=== PATIENT | male | born 1930 | race Caucasian/White ===

== ENCOUNTER 2017-07-30 09:15 | Emergency (ER) | payer MEDICARE ==
[2017-07-30] MEDS ORDERED: ISOVUE-370 76%-LOCM 1 ML ONE (11:40)
[2017-07-30 12:28] LABS: #Basophils 0.1 thou/uL (0.0-0.2); #Eosinphils 0.1 thou/uL (0.0-0.7); #Lymphocytes 0.8 thou/uL (1.20-3.40); #Monocytes 1.2 thou/uL (0.11-0.59); #Neutrophils 13.1 thou/uL (1.40-6.50); %Basophils 0.4 % (0.0-1.0); %Eosinophils 0.4 % (0.0-10.0); %Lymphocytes 5.3 % (21.0-51.0); %Monocytes 7.7 % (0.0-10.0); %Neutrophils 86.2 % (42.0-75.0); Hemoglobin 14.7 g/dL (14.0-18.0); Mean Corpuscular HGB CONC 33.1 g/dL (32.0-36.0); Mean Corpuscular Hemoglobin 37.2 pg (27.0-31.0); Mean Platelet Volume 8.5 fL (7.4-10.4); Platelet Count 232 thou/uL (130-400); RBC Distribution Width 14.7 % (11.5-14.5); Red Blood Cell (RBC) Count 3.95 mill/uL (4.70-6.10); White Blood Cell (WBC) Count 15.2 thou/uL (4.8-10.8)
[2017-07-30 12:36] LABS: INR-International Normal Ratio 1.2; PTT 34.4 SEC (22.9-36.1); Prothrombin Time 15.1 SEC (12.0-14.7)
[2017-07-30 12:46] LABS: Hypersemented Neutrophil SLIGHT; MDiff Complete? YES; Macrocytosis MODERATE=16-30 cells (100X) (0-5/hpf); PLT Morphology Comment Appears Adequate; Reflex for Review?? NO; Vacuoles SLIGHT
[2017-07-30 12:50] LABS: ALT (SGPT) 21 U/L (8-55); AST (SGOT) 25 U/L (5-34); Albumin 4.4 g/dL (3.4-4.8); Alkaline Phosphatase 77 U/L (40-150); Anion Gap 14 mmol/L (10-20); BUN (Urea Nitrogen) 39 mg/dL (8.4-25.7); Calc. Creatinine Clearance 0 mL/min (70-130); Carbon Dioxide 23 mmol/L (23-31); Chloride 107 mmol/L (98-107); Estimated GFR-MDRD 37; Globulin 4.5 g/dL (2.4-3.5); Glucose 115 mg/dL (83-110); Magnesium 1.8 mg/dL (1.6-2.6); Potassium 4.5 mmol/L (3.5-5.1); Protein, Total 8.9 g/dL (5.8-8.1); Sodium 139 mmol/L (136-145)
[2017-07-30 12:53] LABS: CKMB 0.7 ng/mL (0-6.6); Troponin I Less than 0.010 ng/mL (< 0.028)
[2017-07-30 13:40] LABS: Bilirubin Negative (Negative); Blood, Urine Negative (Negative); Clarity CLEAR (Clear); Glucose, Urine (Dipstick) Negative (Negative); Leukocyte Negative (Negative); Nitrite Negative (Negative); Protein, Urine (Dipstick) Trace mg/dL (Neg-Trace); Specific Gravity, Urine 1.021 (1.002-1.036); pH, Urine 5.5 (5.0-9.0)
--- NOTE | 2017-07-30 15:03 | CT ---
CT OF THE ABDOMEN AND PELVIS: Date: 07-30-2017 Comparison: Lumbar spine CT, 07-30-17. History: Spine fractures and small retroperitoneal hematoma. Technique: Serial axial CT imaging at 5 mm intervals from lung bases through pubic symphysis with IV contrast. Coronal reformatted imaging obtained. FINDINGS: There is mild increased linear density noted in both lung bases suggesting scar and/or volume loss, s lightly accentuated by patient respiratory motion artifact. There is extensive coronary arterial judi cification noted, not well assessed on this exam. No free intraperitoneal air noted. The liver, gallbladder, and spleen appear grossly unremarkable. Motion artifact limits assessment of the upper abdominal viscera. The adrenal glands and pancreas demonstrate no acute findings. There is a duodenal diverticulum present. Kidneys are grossly unremarkable. Trace nonspecific free fluid is noted in the pelvis posterior to the urinary bladder and just to the right of the distal colon. There is extensive diverticulosis of the descending colon and the sigmoid colon with no evidence for diverticulitis. No evidence for bowel obstruction. Detailed assessment of the bowel is limited second jared to motion artifact and lack of oral contrast. There is scattered atherosclerotic calcification of the abdominal aorta and its branches. There is no lymphadenopathy seen within the abdomen or pelvis. The lumbar spine demonstrates prominent degenerative change most prominent at L3-4 where there is spa ce narrowing, degenerative endplate change and lateral osteophyte formation. There is an acute fracture involving the superior endplate of the T12 vertebral body extending to inv olve the anterior aspect of T12 as well as the right lateral aspect of T12. There is mild loss of saulo tebral body height involving the T12 vertebral body laterally on the right. This T12 fracture is bett er assessed on the 07-30-17 CT examination of the lumbar spine. No definite additional fracture is iden tified. There is mild enlargement of the psoas muscle on the left with minimal adjacent fat stranding suggesting a stable small left paraspinal retroperitoneal hematoma. IMPRESSION: 1. Stable T12 fracture. Stable subtle/small left paraspinal retroperitoneal hematoma. 2. Minimal/trace nonspecific free fluid in the right hemipelvis. 3. No evidence for splenic or hepatic laceration. 4. Multiple additional incidental findings as detailed above. POS: [facility]
== END 2017-07-30 17:44 ==
LOC: ERS 09:15
DX: S22.089A Unspecified fracture of T11-T12 vertebra, initial encounter for closed fracture (principal); S36.892A Contusion of other intra-abdominal organs, initial encounter; N40.0 Benign prostatic hyperplasia without lower urinary tract symptoms; I10 Essential (primary) hypertension; M10.9 Gout, unspecified; W01.0XXA Fall on same level from slipping, tripping and stumbling without subsequent striking against object, initial encounter; Y93.01 Activity, walking, marching and hiking
CPT/HCPCS: 36415; 51701; 70450; 72125; 72131; 74177; 80053; 81003; 82553; 83735; 84484; 85025; 85610; 85730

== ENCOUNTER 2017-09-11 02:50 | Emergency (ER) | payer MEDICARE ==
[2017-09-11 03:23] LABS: #Basophils 0.1 thou/uL (0.0-0.2); #Eosinphils 0.1 thou/uL (0.0-0.7); #Lymphocytes 1.4 thou/uL (1.20-3.40); #Monocytes 1.3 thou/uL (0.11-0.59); #Neutrophils 7.2 thou/uL (1.40-6.50); %Basophils 1.3 % (0.0-1.0); %Eosinophils 1.1 % (0.0-10.0); %Lymphocytes 13.9 % (21.0-51.0); %Monocytes 12.6 % (0.0-10.0); Hemoglobin 13.5 g/dL (14.0-18.0); Mean Corpuscular HGB CONC 33.2 g/dL (32.0-36.0); Platelet Count 457 thou/uL (130-400); RBC Distribution Width 14.2 % (11.5-14.5); Red Blood Cell (RBC) Count 3.64 mill/uL (4.70-6.10); White Blood Cell (WBC) Count 10.1 thou/uL (4.8-10.8)
[2017-09-11 03:42] LABS: ALT (SGPT) 65 U/L (8-55); AST (SGOT) 60 U/L (5-34); Albumin 3.5 g/dL (3.4-4.8); Alkaline Phosphatase 140 U/L (40-150); Anion Gap 13 mmol/L (10-20); BUN (Urea Nitrogen) 22 mg/dL (8.4-25.7); Bilirubin, Total 0.6 mg/dL (0.2-1.2); Calc. Creatinine Clearance 0 mL/min (70-130); Calcium 8.9 mg/dL (7.8-10.44); Carbon Dioxide 23 mmol/L (23-31); Chloride 106 mmol/L (98-107); Estimated GFR-MDRD 56; Glucose 104 mg/dL (83-110); Potassium 3.9 mmol/L (3.5-5.1); Protein, Total 7.5 g/dL (5.8-8.1); Sodium 138 mmol/L (136-145)
[2017-09-11 03:50] LABS: CKMB 0.7 ng/mL (0-6.6); Troponin I Less than 0.010 ng/mL (< 0.028)
[2017-09-11 04:40] LABS: Bilirubin Negative (Negative); Blood, Urine Negative (Negative); Clarity CLEAR (Clear); Glucose, Urine (Dipstick) Negative (Negative); Leukocyte Negative (Negative); Nitrite Negative (Negative); Protein, Urine (Dipstick) Negative (Neg-Trace); Specific Gravity, Urine 1.016 (1.002-1.036)
--- NOTE | 2017-09-11 08:01 | RAD ---
PORTABLE CHEST ONE VIEW: Date: 09-11-17 Time: 3:04 a.m. History: Altered mental status. FINDINGS: Comparison made with exam of 08-01-17. The heart size is enlarged. There is continued elevation of the right hemidiaphragm. No lobar consoli dation, pneumothoraces, pablo pleural edema or pleural effusions are seen. There are degenerative manny nges of the spine and shoulder joints. IMPRESSION: No acute process. POS: [facility]
== END 2017-09-11 05:50 ==
LOC: ERS 02:50
DX: F03.90 Unspecified dementia, unspecified severity, without behavioral disturbance, psychotic disturbance, mood disturbance, and anxiety (principal); E78.5 Hyperlipidemia, unspecified; I10 Essential (primary) hypertension
CPT/HCPCS: 51701; 71045; 80053; 81003; 82553; 83605; 84484; 85025; 93005

== ENCOUNTER 2017-11-28 03:53 | Emergency (ER) | payer MEDICARE ==
[2017-11-28] MEDS ORDERED: Lidocaine 1% w/Epinephrine 1:100K 20 ML VIAL ONE (04:01)
[2017-11-28 04:22] LABS: #Basophils 0.2 thou/uL (0.0-0.2); #Eosinphils 0.3 thou/uL (0.0-0.7); #Lymphocytes 1.4 thou/uL (1.20-3.40); #Monocytes 1.1 thou/uL (0.11-0.59); #Neutrophils 10.4 thou/uL (1.40-6.50); %Basophils 1.4 % (0.0-1.0); %Eosinophils 2.3 % (0.0-10.0); %Lymphocytes 10.3 % (21.0-51.0); %Monocytes 8.2 % (0.0-10.0); %Neutrophils 77.8 % (42.0-75.0); Mean Corpuscular HGB CONC 32.1 g/dL (32.0-36.0); Mean Corpuscular Hemoglobin 32.9 pg (27.0-31.0); Mean Platelet Volume 7.7 fL (7.4-10.4); Platelet Count 587 thou/uL (130-400); Red Blood Cell (RBC) Count 4.26 mill/uL (4.70-6.10); White Blood Cell (WBC) Count 13.4 thou/uL (4.8-10.8)
[2017-11-28 04:32] LABS: Anion Gap 13 mmol/L (10-20); BUN (Urea Nitrogen) 16 mg/dL (8.4-25.7); Calc. Creatinine Clearance 0 mL/min (70-130); Carbon Dioxide 27 mmol/L (23-31); Chloride 106 mmol/L (98-107); Estimated GFR-MDRD 68; Glucose 98 mg/dL (83-110); Potassium 3.1 mmol/L (3.5-5.1); Sodium 143 mmol/L (136-145)
[2017-11-28] MEDS ORDERED: Oxymetazoline HCl 0.05% ( 15 ML ) ONE (06:37)
--- NOTE | 2017-11-28 07:51 | CT ---
CT HEAD NONCONTRAST: HISTORY: Subdural hematoma. Followup. COMPARISON: Earlier exam on the same date. FINDINGS: The very small hyperdense extraaxial fluid collection with biconvex margins along the posterior aspec t of the left temporal inner calvarium is again demonstrated. It has increased very slightly in size , now measuring up to 0.5 cm in depth. There is minimal underlying mass effect. No new areas of hem orrhage. Ventricles are unremarkable. IMPRESSION: While the left frontotemporal subdural hematoma has increased slightly in size, it remains very small , measuring up to 0.5 cm in depth. No new abnormalities. POS: [facility]
--- NOTE | 2017-11-28 11:14 | CT ---
PRELIMINARY REPORT/[facility]/EMERGENTY AFTER-HOURS PROCEDURE Addendum created by Rene Sims MD on 11/28/2017 5:16 AM Central Time ([place] & [place])THIS REPORT CONTAI NS FINDINGS THAT MAY BE CRITICAL TO PATIENT CARE. The findingswere verbally communicated via telephon e conference with TENZIN VILA at 5:06 AM CDT on 11/28/2017. The findings were acknowledged and under stood. Initial Report created on 11/28/2017 5:02 AM Central Time ([place] & [place]) CT Head Without Intravenous Contrast CLINICAL HISTORY: 87 years old, male; Injury or trauma; Fall; Initial encounter; Blunt trauma (contusions or hematomas) ; Consciousness not specified; Patient HX: Additional history obtained from ems, m87 presents to ed S /P fall C/O abrasions and tailbone pain. [facility]. About 30 minutes a go, nurses were rounding and pt was on floor yelling for help. Nurses reported to ems that the pt's c omforter was wrapped around ankles which possibly caused the fall. Pt has no complaints right now. TECHNIQUE: Axial computed tomography images of the head/brain without intravenous contrast. COMPARISON: No relevant prior studies available. FINDINGS: Brain: Atrophy and mild white matter hypodensities compatible with chronic microvascular ischemic manny nge. Extra-axial hyperdensity measuring up to 3 mm in thickness along the left posterior temporal and frontoparietal region. Ventricles: Unremarkable. Bones/joints: Unremarkable. No acute fracture. Soft tissues: Small calcific density in the subcutaneous soft tissues at the bridge of the nose. Sinuses: Unremarkable. Mastoid air cells: Unremarkable. No mastoid effusion. IMPRESSION: 1. Thin acute subdural hematoma along the left frontoparietal and posterior temporal region. 2. Small calcific density in the subcutaneous soft tissues at the bridge of the nose. Thank you for allowing us to participate in the care of your patient. Dictated and Authenticated by: Rene Sims MD 11/28/2017 5:02 AM Central Time ([place] & [place]) FINAL REPORT CT HEAD NONCONTRAST: DATE: 11/28/17. TIME: Performed on an emergency basis at 0413 hours. HISTORY: Fall. Head injury. FINDINGS: The findings agree with the preliminary report by Dr. Sims from [facility]. The very small l eft frontotemporal subdural hematoma is confirmed. Minimal mass effect. POS: [facility]
--- NOTE | 2017-11-28 16:13 | CON ---
DATE OF CONSULTATION: 11/28/2017 This is a 30 minute initial patient evaluation in which greater than 50% of the exam was spent on cou nseling and coordinating the patient's care. Remainder of the exam was spent in review of patient's medical records and appropriate imaging studies. CHIEF COMPLAINT: Status post fall with small left subdural hematoma. HISTORY OF PRESENT ILLNESS: Mr. Phillips is a pleasant 87-year-old male who presents to [facility] from his residential facility after sustaining an unwitnessed fall. Apparently, the patient has a significant component of dementia and Alzheimer's disease. He was found to have a lace ration on the nose and blood inside his mouth. According to the patient's brother and sister who acc ompany him, he is somewhat more confused at this time. The patient does not normally take blood thin ners and does not typically use a walker at the facility. He does not typically fall. On review of patient's head CT done today at 4:13 a.m., shows a small left frontal subdural hematoma. Neurosurger y was asked to consult regarding this. PHYSICAL EXAMINATION: The patient is awake and alert. He is interactive, but it is difficult to und erstand. His speech is somewhat garbled, but he is able to answer yes or no questions appropriately. His GCS currently is 14. He is able to follow commands in all 4 extremities with significant encou ragement. With the help of the patient's family, again, he is able to follow commands equally in all 4 extremities and appears to have good strength in the bilateral upper and bilateral lower extremiti es. He does have a laceration on the nose that has been repaired by the emergency room and also has blood in his mouth. He is able to stick out his tongue and there is no deviation. Pupils are equal, round, and reactive bilaterally. He does not complain of neck pain and does not have any grimace or worsen tenderness to palpation about palpation of the midline cervical spine and in the bilateral pa raspinal musculature of the cervical spine. IMPRESSION: Status post unwitnessed fall with very small left subdural hematoma. PLAN: Review of the patient's repeat head CT from 7:30 a.m. shows stable left subdural hematoma. Fr om our standards, the patient is able to discharge home to his nursing facility and we will arrange f or a week follow up with noncontrast head CT. We would like him to remain off all blood thinners unt il seen by Neurosurgery. It should be noted that the patient was evaluated and examined at 7:00 a.m. today; however, he was br ought back to the emergency room from his facility. They have requested admission and the trauma col [facility] will admit him. He should have q.2 hour neuro checks and they will admit him to the IM. H e may eat and activity as tolerated. His head of bed should remain elevated at 30 degrees at all carol es. Please call with any questions or changes in patient's neurologic status. Otherwise, he is stab le for discharge at any time. He will not require neurosurgical intervention as the left subdural he matoma is very minimal and has remained stable over the past several hours. Rufino Kramer PA-C is dictating fro Dr. Vargas Lord.
== END 2017-11-28 09:45 | disposition home or self-care (01) ==
LOC: ERS 03:53
DX: S06.5X9A Traumatic subdural hemorrhage with loss of consciousness of unspecified duration, initial encounter (principal); S01.511A Laceration without foreign body of lip, initial encounter; S01.21XA Laceration without foreign body of nose, initial encounter; F03.90 Unspecified dementia, unspecified severity, without behavioral disturbance, psychotic disturbance, mood disturbance, and anxiety; E78.5 Hyperlipidemia, unspecified; I10 Essential (primary) hypertension; M10.9 Gout, unspecified; Z79.899 Other long term (current) drug therapy; W06.XXXA Fall from bed, initial encounter
CPT/HCPCS: 36415; 70450; 80048; 85025; J2001

== ENCOUNTER 2017-11-28 12:20 | Inpatient (IN) | payer MEDICARE ==
--- NOTE | 2017-11-28 13:39 | RAD ---
CHEST ONE VIEW: Comparison: 09-11-17 History: Fall. Small subdural bleed. FINDINGS: Atherosclerosis of the aorta. Normal cardiac silhouette. The pulmonary vessels are within normal limi ts. Costophrenic angles are clear. Lung volumes are diminished. No consolidation or mass. No pneumoth orax. There are degenerative changes in both shoulders. IMPRESSION: 1. Atherosclerosis. 2. Diminished lung volumes. No acute cardiopulmonary process. POS: [facility]
--- NOTE | 2017-11-28 13:49 | CT ---
CT HEAD NONCONTRAST: History: Fall, subdural hematoma. Follow up. Comparison: 11-28-17 FINDINGS: The small left frontotemporal subdural hematoma is stable compared to the previous exam on the same d ate. There is minimal underlying mass effect. Diffuse cortical atrophy and chronic ischemic small ves ariel disease are again demonstrated. Gas density at the posterior pharynx may be related to secretions . Visualized paranasal sinuses are well aerated. IMPRESSION: Stable CT appearance of the small left frontotemporal subdural hematoma. POS: [facility]
--- NOTE | 2017-11-28 14:06 | PRG ---
DATE OF SERVICE: 11/28/2017 I reviewed the notes of my colleague on Allan Phillips. I agree with Ms. Nia PA-C's assessment. He is an 87-year-old man who fell at longterm. He was brought in for a very small left-sided f rontotemporal acute subdural hematoma. This is stable on repeat head CT. I would recommend discharg e back to his group home facility given the stability and the patient is clinically at his basel ine with intermittent following of commands. We will follow up in my clinic in 1 month.
[2017-11-28 14:26] LABS: #Basophils 0.2 thou/uL (0.0-0.2); #Eosinphils 0.2 thou/uL (0.0-0.7); #Monocytes 1.3 thou/uL (0.11-0.59); #Neutrophils 13.1 thou/uL (1.40-6.50); %Basophils 1.3 % (0.0-1.0); %Lymphocytes 6.2 % (21.0-51.0); %Monocytes 8.2 % (0.0-10.0); %Neutrophils 83.3 % (42.0-75.0); Hemoglobin 13.2 g/dL (14.0-18.0); Mean Corpuscular HGB CONC 32.3 g/dL (32.0-36.0); Mean Corpuscular Hemoglobin 32.9 pg (27.0-31.0); Mean Platelet Volume 7.8 fL (7.4-10.4); Platelet Count 608 thou/uL (130-400); RBC Distribution Width 13.7 % (11.5-14.5); Red Blood Cell (RBC) Count 4.02 mill/uL (4.70-6.10); White Blood Cell (WBC) Count 15.7 thou/uL (4.8-10.8)
[2017-11-28 14:32] LABS: PTT 37.3 SEC (22.9-36.1)
[2017-11-28 14:35] LABS: INR-International Normal Ratio 1.3; Prothrombin Time 16.1 SEC (12.0-14.7)
[2017-11-28] MEDS ORDERED: Ibuprofen 200 MG TAB PO PRN (14:44)
[2017-11-28] MEDS ORDERED: Acetaminophen 500 MG TAB PO PRN (14:44)
[2017-11-28 14:47] LABS: ALT (SGPT) 11 U/L (8-55); AST (SGOT) 27 U/L (5-34); Albumin 3.8 g/dL (3.4-4.8); Alkaline Phosphatase 93 U/L (40-150); Anion Gap 13 mmol/L (10-20); BUN (Urea Nitrogen) 17 mg/dL (8.4-25.7); Bilirubin, Total 1.1 mg/dL (0.2-1.2); CK (CPK) 92 U/L (30-200); Calc. Creatinine Clearance 0 mL/min (70-130); Calcium 8.8 mg/dL (7.8-10.44); Carbon Dioxide 26 mmol/L (23-31); Chloride 105 mmol/L (98-107); Estimated GFR-MDRD 73; Globulin 3.6 g/dL (2.4-3.5); Glucose 105 mg/dL (83-110); Potassium 3.2 mmol/L (3.5-5.1); Protein, Total 7.4 g/dL (5.8-8.1); Sodium 141 mmol/L (136-145)
[2017-11-28] MEDS ORDERED: Ondansetron ODT 4 MG TAB PO PRN (14:47)
[2017-11-28] MEDS ORDERED: Dextrose 50% Abboject 50 ML SYRINGE SLOW IVP PRN (14:47)
[2017-11-28] MEDS ORDERED: Dextrose 5% in Water 1,000 ML IV PRN (14:47)
[2017-11-28] MEDS ORDERED: Ondansetron HCl/PF 4 MG/2 ML Vial IVP PRN (14:47)
[2017-11-28 14:50] LABS: CKMB 1.9 ng/mL (0-6.6); Troponin I 0.022 ng/mL (< 0.028)
[2017-11-28] MEDS ORDERED: Oxymetazoline HCl 0.05% ( 15 ML ) ONE (15:52)
[2017-11-28 18:16] VITALS: BMI 25.8
[2017-11-28] MEDS: hydrALAZINE 20 MG/ML VIAL SLOW IVP PRN (20:46)
[2017-11-28] MEDS: Famotidine 20 MG TAB PO SCH (20:58)
[2017-11-29] MEDS: hydrALAZINE 20 MG/ML VIAL SLOW IVP PRN (03:15)
[2017-11-29 04:35] LABS: #Basophils 0.1 thou/uL (0.0-0.2); #Eosinphils 0.1 thou/uL (0.0-0.7); #Lymphocytes 1.2 thou/uL (1.20-3.40); #Monocytes 1.8 thou/uL (0.11-0.59); #Neutrophils 14.4 thou/uL (1.40-6.50); %Basophils 0.8 % (0.0-1.0); %Eosinophils 0.7 % (0.0-10.0); %Lymphocytes 6.7 % (21.0-51.0); %Monocytes 10.4 % (0.0-10.0); %Neutrophils 81.4 % (42.0-75.0); Hemoglobin 13.2 g/dL (14.0-18.0); Mean Corpuscular HGB CONC 31.8 g/dL (32.0-36.0); Mean Corpuscular Hemoglobin 31.9 pg (27.0-31.0); Mean Platelet Volume 7.8 fL (7.4-10.4); Platelet Count 671 thou/uL (130-400); RBC Distribution Width 13.8 % (11.5-14.5); Red Blood Cell (RBC) Count 4.13 mill/uL (4.70-6.10); White Blood Cell (WBC) Count 17.7 thou/uL (4.8-10.8)
[2017-11-29 04:44] LABS: Anion Gap 15 mmol/L (10-20); BUN (Urea Nitrogen) 19 mg/dL (8.4-25.7); Calc. Creatinine Clearance 70 mL/min (70-130); Calcium 8.8 mg/dL (7.8-10.44); Carbon Dioxide 21 mmol/L (23-31); Chloride 106 mmol/L (98-107); Estimated GFR-MDRD 81; Glucose 115 mg/dL (83-110); Magnesium 1.5 mg/dL (1.6-2.6); Phosphorus 2.5 mg/dL (2.3-4.7); Sodium 139 mmol/L (136-145)
[2017-11-29 05:30] LABS: Bilirubin Negative (Negative); Blood, Urine Negative (Negative); Clarity CLEAR (Clear); Glucose, Urine (Dipstick) Negative (Negative); Leukocyte Negative (Negative); Nitrite Negative (Negative); Protein, Urine (Dipstick) 100 mg/dL (Neg-Trace); Specific Gravity, Urine 1.015 (1.002-1.036)
[2017-11-29 05:32] LABS: Bacteria/HPF None Seen HPF (None Seen); Hyaline Casts/LPF 0-3 HYALINE CAST LPF (0-3 Hyaline); Pathc Cast-AUWi Flag 0.14 (0-2.49); RBC/HPF 0-3 HPF (0-3); Squamous Epithelial 0-3 HPF (0-3); WBC/HPF 0-3 HPF (0-3)
--- NOTE | 2017-11-29 08:03 | HP-2 ---
DATE OF SERVICE: 11/28/2017 TIME: 1500 ATTENDING: Clif Lisa D.O. HISTORY OF PRESENT ILLNESS: Patient is an 87-year-old male who resides at [facility] that reportedly fell this morning around 3:00 a.m. Per patient's family reports the nursing staff there reported he got tingled up and some blankets and fell from ground level. He was seen in the ED at that time where they found a small left frontotemporal subdural hematoma. Neurosurgery was called and recommended a repeat CT scan several hours later to determine stability of hematoma. Repeat CT scan 2-1/2 hours later showed slightly increase in size, measuring up to 0.5 cm in depth. No new abnormalities. Patient was discharged back to the detention with stable vital signs and a GCS 14 at baseline. When he arrived there, detention staff reports that he was talking more than normal and has some hallucinations, seeing things on wall. Family was not there at that time, but sister reports that over the past 3 days she has noticed this change. Despite the fact that this is not a new change per the family, he is A&O x0 at the time of my exam, which is a new finding from yesterday since the fall per family members. Of note, with his fall, he also had some small lacerations to his nose and his lip that were repaired with suture. PAST MEDICAL HISTORY: 1. Hypertension. 2. Hyperlipidemia. 3. BPH. 4. Gout. 5. Alzheimer disease. 6. Family reports a blood disorder in which he sees cancer doctor, unsure of diagnosis. PAST SURGICAL HISTORY: 1. Left fifth toe surgery. 2. Appendectomy. SOCIAL HISTORY: Patient resides at [facility] over the last 2 months. No current tobacco, alcohol or drug use. MEDICATIONS: 1. Amiloride/hydrochlorothiazide 5 mg/50 mg 1 tab p.o. q.a.m. 2. Hydroxyurea 500 mg b.i.d. 3. Metoprolol tartrate p.o. 25 mg b.i.d. 4. Protonix 40 mg p.o. q.a.m. 5. Simvastatin 40 mg at bedtime. 6. Terazosin 2 mg 2 caps for a total of 4 mg at bedtime. 7. Uloric 40 mg 1 tab p.o. daily. ALLERGIES: No reported allergies. REVIEW OF SYSTEMS: Hard to obtain because of patient's mental orientation, he denies any pain and family members report no recent cough, fever or illness. PHYSICAL EXAMINATION: VITAL SIGNS: Most recent vital signs per the ER record are blood pressure 159/ 79, pulse 77, respiratory rate 16, and temperature 98.7. Oxygen saturation 96% on room air. GENERAL: The patient is alert and oriented x0. 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 He is in no acute distress. HEENT: Patient does have a laceration of the nose and lip, status post repair with suture. The patient does have a current nosebleed with some packing in place at this time. EOMI. PERRLA. CARDIOVASCULAR: Regular rate and rhythm. No murmurs noted. LUNGS: Clear to auscultation bilaterally. ABDOMEN: Soft, nontender, nondistended. MUSCULOSKELETAL: Movement noted in all extremities. NEUROVASCULAR: Muscle strength in lower extremities and upper extremities bilaterally is 4/5 and bilateral lower extremities 5/5. Normal sensation throughout. GCS14 IMAGES: Brain CT done at 0300, 0500 and again 1315, on the left frontotemporal subdural hematoma that has had mild increase in size over the course of the first 2 CTs and hence become stable since then. CBC reports white blood cell count 15.7, hemoglobin 13.2, hematocrit 41.0, MCV 102, platelet count of 608. Coagulation: PT 16.1, INR 1.3, PTT 37.3. Chemistry panel: Sodium 141, potassium 3.2, chloride 105, carbon dioxide 26, BUN 17, creatinine 0.98, glucose 105, calcium 8.8, total bilirubin 1.1, AST 27, ALT 11, alkaline phosphatase 93. CK of 92, total protein 7.4, albumin 3.8. IMPRESSION: 1. Status post ground level fall. 2. Small left frontotemporal subdural hematoma, stable. 3. Hypertension. 4. Hyperlipidemia. 5. Benign prostatic hypertrophy. PLAN: 1. Admit to [facility] for observation and serial neuro checks. Neurosurgery has been made aware that the patient is here. 2. Epistaxis. The patient is unable to leave the pressure dressing in place, we will plan to place Rhino rocket. 3. With acute change in orientation and elevated white count will evaluate for possible infection as cause for acute delirium. The patient's sister reports mentation change lead the last 3 days prior to fall. It is perfectly reasonable though that his orientation status could be due to his subdural hematoma and therefore does need to be monitored with serial checks. We will rule out infection. 4. We will restart patient on home medications as I am aware from medication list provided, the patient is not on any blood thinners at this time. This patient was checked out to attending, Dr. Lisa, who will see and examine the patient as well and agrees with the plan. JESSICAD
[2017-11-29] MEDS ORDERED: Febuxostat [Uloric] 40 MG PO SCH (09:00)
[2017-11-29] MEDS ORDERED: Magnesium Sulfate 3 GM in Sodium Chloride 0.9% 100 ML IVPB SCH (12:30)
[2017-11-29] MEDS ORDERED: Potassium Phosphate 30 MMOL, Magnesium Sulfate 3 GM in Sodium Chloride 0.9% 250 ML 250 ML IVPB SCH (12:30)
--- NOTE | 2017-11-29 12:44 | PRG ---
DATE OF SERVICE: 11/29/2017 SUBJECTIVE: Mr. Phillips is an 87-year-old man with history of senile dementia of Alzheimer's type, st atus post ground level fall sustaining mild traumatic brain injury with small left convexity subdural hematoma which has remained stable on repeat CT scan. The patient is somewhat somnolent this mornin g, awakens however, to deep voice. He moves all extremities and follows commands. Lincoln coma scal e therefore is E3 M6 V3. OBJECTIVE: VITAL SIGNS: Currently includes blood pressure 146/72, pulse is 107, respiratory rate is 25. Maximu m temperature in the last 24 hours is 98.8 degrees Fahrenheit. Oxygen saturation is 96% on room air. HEENT: Reveals pupils equal, round, reactive to light and accommodation. HEART: Reveals regular rate with sinus tachycardia. No murmurs or gallops auscultated. CHEST: Clear to auscultation bilaterally. Breathing is regular and unlabored. ABDOMEN: Soft, nontender, nondistended. Bowel sounds in all 4 quadrants appear normoactive. EXTREMITIES: Reveals 2+ radial and pedal pulses bilaterally. No ankle edema is present. NEUROLOGIC: Reveals no focal deficits. LABORATORY DATA: Today includes a CBC with 17,700 white blood cells, hemoglobin and hematocrit stabl e at 13.2 and 41.5 respectively. Platelet count is 671,000. Metabolic profile: Sodium 139, potassi um is 3.0, chloride is 106, bicarbonate is 21, BUN 19, creatinine 0.89, glucose is 115, magnesium 1.5 , phosphorus is 2.5. IMPRESSION: 1. Post-admission day #1 status post ground level fall. 2. 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 3. Acute hypokalemia. 4. Acute hypomagnesemia. 5. Acute hypophosphatemia. PLAN: 1. Correct abnormal electrolytes. 2. Initiate physical and occupational therapy. 3. We will ask palliative medicine to see the patient and consider hospice care upon return to [facility] facility. The above findings and plan discussed with the patient's family at bedside. They all indicated under stand of information given and wishes to visit with the palliative care.
[2017-11-29] MEDS: Lactated Ringer's 1,000 ML IV SCH (14:36)
[2017-11-29] MEDS: Famotidine 20 MG TAB PO SCH ×2 (14:52→21:18)
[2017-11-29] MEDS: Atorvastatin Calcium 20 MG TAB PO SCH (14:52)
[2017-11-29] MEDS: Hydroxyurea 500 MG CAP PO SCH (14:52)
[2017-11-29] MEDS: Lisinopril 5 MG TAB PO SCH (14:53)
--- NOTE | 2017-11-29 20:43 | PRG ---
DATE OF SERVICE: 11/29/2017 This is a 30-minute initial hospital visit note in which 30 minutes were spent in reviewing the imagi ng record, evaluation and examination of the patient and formulation of a plan. Greater than 50% of the time was spent in counseling on Allan Phillips. CHIEF COMPLAINT: Small left-sided convexity acute subdural hematoma status post fall, history of dem entia. SUBJECTIVE: Mr. Phillips is an 87-year-old man. He has longstanding dementia and has been in a [facility] home. He fell and struck his face and developed epistaxis and a small left-sided acute subdural he matoma with no worrisome midline shift and mass effect was identified. This has been stable on [address] scans. He has a nasal balloon in place to control any continuous nasal bleed. I am speaking with his family currently. OBJECTIVE: On exam, the patient spontaneously moves his extremities, but does not arouse to voice or to gentle touch on his shoulder. IMPRESSION AND PLAN: The patient's family know that obviously the bleed is not something that would warrant any surgical intervention. Unfortunately, at his age, any type of head injury can exacerbate or accelerate the dementia process. I think his prognosis is poor overall and there is no role for neurosurgical intervention on this patient. DIAGNOSES: 1. Left acute subdural hematoma, status post fall. 2. Dementia.
[2017-11-29] MEDS: Terazosin HCl 1 MG CAP PO SCH (21:18)
[2017-11-30] MEDS: hydrALAZINE 20 MG/ML VIAL SLOW IVP PRN ×2 (03:12→12:21)
[2017-11-30] MEDS: Lisinopril 5 MG TAB PO SCH (08:14)
[2017-11-30] MEDS: Atorvastatin Calcium 20 MG TAB PO SCH (08:14)
[2017-11-30] MEDS: Hydroxyurea 500 MG CAP PO SCH (08:14)
[2017-11-30] MEDS: Famotidine 20 MG TAB PO SCH ×2 (08:14→22:17)
[2017-11-30] MEDS: Lactated Ringer's 1,000 ML IV SCH (08:35)
--- NOTE | 2017-11-30 13:10 | PRG ---
DATE OF SERVICE: 11/30/2017 ATTENDING PHYSICIAN: Dr. Clif Lisa. SUBJECTIVE: Mr. Phillips is an 87-year-old man with a history of dementia, status post ground level fa ll sustaining a mild traumatic brain injury with a subdural hematoma. He has been seen and evaluated by Neurosurgery who does not recommend surgical intervention. This has been discussed with his fami ly and family is in agreement. He was seen this morning. He is more awake and responsive than he wa s on rounds yesterday morning. He is conversive, but confused. OBJECTIVE: VITAL SIGNS: Temperature 98.3, pulse 106, respirations 33, and blood pressure 137/69. GENERAL: Elderly male lying in bed in no acute distress. HEENT: Contusions and abrasions to the mid face and nose. Dry blood around the nares. No active bl eeding. CARDIOVASCULAR: Sinus tachycardia. Heart sounds normal. PULMONARY: Bilateral breath sounds equal and clear. No respiratory distress. ABDOMEN: Soft, nontender, nondistended. Normal bowel sounds. EXTREMITIES: Cap refill brisk. All extremities 2+ pulses in all extremities. NEUROLOGIC: GCS is 14. E4, V4, M6. ASSESSMENT: 1. Status post ground level fall. 2. Acute traumatic brain injury with subdural hematoma, does not require surgical intervention. 3. Mental status somewhat improved yesterday. PLAN: 1. Patient is seen by palliative care who continues to follow for placement and goals of therapy. A fter conversation with palliative care yesterday, hospice care in a facility is being considered by leesa finley. A decision has not been made at this time. The patient was made DNR yesterday due to family' s wishes after discussion with palliative care. 2. Continue physical and occupational therapy. 3. Continue to monitor and replace electrolytes as indicated. Patient was reviewed with Dr. Lisa who agrees with plan.
[2017-11-30] MEDS: Terazosin HCl 1 MG CAP PO SCH (22:18)
[2017-12-01] MEDS: Lactated Ringer's 1,000 ML IV SCH (04:48)
[2017-12-01 05:20] LABS: Magnesium 1.7 mg/dL (1.6-2.6); Phosphorus 3.3 mg/dL (2.3-4.7)
[2017-12-01] MEDS: Hydroxyurea 500 MG CAP PO SCH (08:35)
[2017-12-01] MEDS: Famotidine 20 MG TAB PO SCH ×2 (08:36→20:26)
[2017-12-01] MEDS: Atorvastatin Calcium 20 MG TAB PO SCH (08:36)
[2017-12-01] MEDS: Lisinopril 5 MG TAB PO SCH (08:36)
[2017-12-01] MEDS ORDERED: Furosemide 20 MG/2 ML VIAL SLOW IVP SCH (11:30)
--- NOTE | 2017-12-01 19:02 | PRG ---
DATE OF SERVICE: 12/01/2017 ATTENDING PHYSICIAN: Clif Lisa DO. SUBJECTIVE: Mr. Phillips is an 87-year-old man with a history of dementia, status post ground level fa ll, sustaining a mild traumatic brain injury with subdural hematoma. He was evaluated by Neurosurger y who subsequently did not recommend any surgical intervention. Family was in agreement with that. Palliative care was consulted 2 days ago for goals of care. SUBJECTIVE: The patient was made DNR at that time. The family is considering long-term placement pa tient. He has been stable overnight in [facility]. OBJECTIVE: VITAL SIGNS: Temperature 98.4, pulse 92, respirations 24, O2 sat 95% on 2 liters nasal cannula, bloo d pressure 134/74. GENERAL: Elderly male lying in bed, in no acute distress, pleasant and converses but confused. HEENT: Contusion abrasions to the mid face and nose. No active bleeding. CARDIOVASCULAR: Sinus tachycardia. Heart sounds normal. PULMONARY: Bilateral breath sounds equal and clear. No respiratory distress. ABDOMEN: Soft, nontender, nondistended. Normal bowel sounds. EXTREMITIES: Cap refill brisk in all extremities, 2+ pulses in all extremities. NEUROLOGIC: GCS 14, E4 V4 M6. ASSESSMENT: 1. Status post ground level fall. 2. Acute traumatic brain injury with subdural hematoma, does not require surgical intervention. 3. Mental status is stable. The patient remains confused. GCS 14. 4. Patient with physical exam findings of fluid volume overload. PLAN: 1. Give 20 mg of Lasix this a.m. 2. Recheck labs in a.m. and continue to follow laboratory studies. 3. Placement pending. Family considering palliative care options. 4. Continue physical and occupational therapy. 4. Continue to monitor and replace electrolytes as indicated. The patient was reviewed with Dr. Lisa, who agrees with plan.
[2017-12-01] MEDS: Terazosin HCl 1 MG CAP PO SCH (20:27)
[2017-12-02 05:01] LABS: Anion Gap 11 mmol/L (10-20); BUN (Urea Nitrogen) 21 mg/dL (8.4-25.7); Calc. Creatinine Clearance 59 mL/min (70-130); Calcium 8.2 mg/dL (7.8-10.44); Carbon Dioxide 29 mmol/L (23-31); Chloride 104 mmol/L (98-107); Estimated GFR-MDRD 67; Glucose 98 mg/dL (83-110); Magnesium 1.8 mg/dL (1.6-2.6); Phosphorus 4.3 mg/dL (2.3-4.7); Potassium 3.2 mmol/L (3.5-5.1); Sodium 141 mmol/L (136-145)
[2017-12-02] MEDS: Hydroxyurea 500 MG CAP PO SCH (09:22)
[2017-12-02] MEDS: Atorvastatin Calcium 20 MG TAB PO SCH (09:22)
[2017-12-02] MEDS: Famotidine 20 MG TAB PO SCH ×2 (09:22→21:31)
[2017-12-02] MEDS: Lisinopril 5 MG TAB PO SCH (09:22)
[2017-12-02] MEDS ORDERED: Magnesium 2 GM/NS 0.9% 100 ML 2 GM in Premix Bag 1 BAG IVPB SCH (12:15)
--- NOTE | 2017-12-02 18:49 | PRG ---
DATE OF SERVICE: 12/02/2017. SUBJECTIVE: Mr. Phillips is an 87-year-old man, who was admitted following a ground level fall where h e sustained acute traumatic subdural hematoma. Hospitalization has been complicated by acute metabol ic encephalopathy, which is now improving. Today, patient is more awake and alert. He is less confu sed today. Tolerating oral intake. He is having adequate urinary output. OBJECTIVE: VITAL SIGNS: Today includes blood pressure 100/45, pulse 85, respiratory rate is 23, temperature 98. 4 degrees Fahrenheit, and oxygen saturation 95% on 2 liters by nasal cannula oxygen. HEENT: Reveals normocephalic and atraumatic. Pupils are equal, round, reactive to light and accommo dation. Extraocular muscles are intact bilaterally. He has no sclerae icterus present. HEART: Reveals regular rate and rhythm, no murmurs or gallops auscultated. CHEST: Lungs clear to auscultation bilaterally. Breathing regular and unlabored. ABDOMEN: Soft, nontender, nondistended. EXTREMITIES: Reveals 2+ radial and pedal pulses bilaterally. No ankle edema is present. NEUROLOGIC: Reveals no focal deficits present. LABORATORY DATA: Today includes metabolic profile. Sodium 141, potassium 3.2, chloride is 104, bica rbonate is 29, BUN 21, creatinine is 1.05, glucose is 98, magnesium 1.8, phosphorus 4.3. IMPRESSION: 1. Post-injury day #4 status post ground level fall. 2. 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 3. Acute hypokalemia. 4. Acute hypomagnesemia. PLAN: 1. Correct the abnormal electrolytes. 2. He continued with physical and occupational therapy. 3. The patient has been evaluated by palliative care and case management proceeding with placement t o inpatient hospice care in an extended care facility setting. Above findings and plan discussed with the patient and family at bedside. Family indicates understan ding of information given. I answered their questions.
[2017-12-02] MEDS: Terazosin HCl 1 MG CAP PO SCH (21:31)
[2017-12-03 05:31] LABS: Anion Gap 10 mmol/L (10-20); BUN (Urea Nitrogen) 24 mg/dL (8.4-25.7); Calc. Creatinine Clearance 61 mL/min (70-130); Calcium 8.3 mg/dL (7.8-10.44); Carbon Dioxide 28 mmol/L (23-31); Chloride 105 mmol/L (98-107); Estimated GFR-MDRD 67; Glucose 79 mg/dL (83-110); Magnesium 2.1 mg/dL (1.6-2.6); Phosphorus 4.1 mg/dL (2.3-4.7); Potassium 3.4 mmol/L (3.5-5.1); Sodium 140 mmol/L (136-145)
[2017-12-03] MEDS ORDERED: Potassium Chloride 20 MEQ in Premix Bag 1 BAG IVPB SCH (09:00)
[2017-12-03] MEDS: Hydroxyurea 500 MG CAP PO SCH (09:30)
[2017-12-03] MEDS: Famotidine 20 MG TAB PO SCH (09:30)
[2017-12-03] MEDS: Atorvastatin Calcium 20 MG TAB PO SCH (09:30)
[2017-12-03] MEDS: Lisinopril 5 MG TAB PO SCH (09:31)
[2017-12-03] MEDS ORDERED: Potassium Chloride 20 MEQ TAB PO SCH (11:30)
[2017-12-03 12:29] VITALS: BP 116/70; TEMP 98.7
== END 2017-12-03 14:15 | disposition hospice, inpatient (51) | DRG 950 ==
LOC: ERS 12:20 → IMCU/EMU 13:40 → SURG B 12-02 22:52
PROVIDERS: ADMIT Surgery; ATTEND Surgery
DX: S06.5X0D Traumatic subdural hemorrhage without loss of consciousness, subsequent encounter (principal); W18.39XA Other fall on same level, initial encounter; Y93.89 Activity, other specified; S01.511D Laceration without foreign body of lip, subsequent encounter; S01.21XD Laceration without foreign body of nose, subsequent encounter; I10 Essential (primary) hypertension; E78.5 Hyperlipidemia, unspecified; N40.0 Benign prostatic hyperplasia without lower urinary tract symptoms; M10.9 Gout, unspecified; G30.9 Alzheimer's disease, unspecified; F02.80 Dementia in other diseases classified elsewhere, unspecified severity, without behavioral disturbance, psychotic disturbance, mood disturbance, and anxiety; E87.6 Hypokalemia; E83.42 Hypomagnesemia; E83.39 Other disorders of phosphorus metabolism; R04.0 Epistaxis; Z51.5 Encounter for palliative care; Z66 Do not resuscitate; R40.2414 Glasgow coma scale score 13-15, 24 hours or more after hospital admission; E87.70 Fluid overload, unspecified
CPT/HCPCS: 12011; 36415; 70450; 71045; 80048; 81003; 81015; 82553; 83735; 83880; 84100; 84484; 85025; 85610; 85730; 93005; G0390; G8978-GP-CK; G8979-GP-CJ; G8987-GO-CM; G8988-GO-CM; G8989-GO-CM; G8996-GN-CN; G8997-GN-CK; J2001; J3475; J3480; J7050

== ENCOUNTER 2017-12-10 17:06 | Inpatient (IN) | payer MEDICARE ==
[2017-12-10 17:54] LABS: Hemoglobin 13.2 g/dL (14.0-18.0); Mean Corpuscular HGB CONC 31.4 g/dL (32.0-36.0); Mean Platelet Volume 7.8 fL (7.4-10.4); Platelet Count 754 thou/uL (130-400); RBC Distribution Width 14.1 % (11.5-14.5); Red Blood Cell (RBC) Count 4.13 mill/uL (4.70-6.10); White Blood Cell (WBC) Count 31.5 thou/uL (4.8-10.8)
[2017-12-10] MEDS ORDERED: Vancomycin HCl 1.25 GM in Sodium Chloride 0.9% 250 ML 250 ML IVPB ONE (18:00)
[2017-12-10 18:11] LABS: Bilirubin Small (Negative); Blood, Urine Negative (Negative); Clarity CLOUDY (Clear); Glucose, Urine (Dipstick) Negative (Negative); Leukocyte Small (Negative); Nitrite Negative (Negative); Protein, Urine (Dipstick) 100 mg/dL (Neg-Trace); Specific Gravity, Urine 1.027 (1.002-1.036); pH, Urine 5.5 (5.0-9.0)
[2017-12-10] MEDS ORDERED: cefTRIAXone\\ROCEPHIN 2 GM VIAL ONE (18:11)
[2017-12-10] MEDS ORDERED: Sodium Chloride 0.9% 100 ML ONE (18:11)
[2017-12-10 18:13] LABS: Bacteria/HPF 1+ HPF (None Seen); Pathc Cast-AUWi Flag 2.47 (0-2.49); Squamous Epithelial None Seen HPF (0-3)
[2017-12-10 18:14] LABS: ALT (SGPT) 62 U/L (8-55); AST (SGOT) 57 U/L (5-34); Albumin 3.2 g/dL (3.4-4.8); Alkaline Phosphatase 252 U/L (40-150); Anion Gap 9 mmol/L (10-20); BUN (Urea Nitrogen) 25 mg/dL (8.4-25.7); Bilirubin, Total 1.1 mg/dL (0.2-1.2); Calc. Creatinine Clearance 0 mL/min (70-130); Calcium 8.3 mg/dL (7.8-10.44); Carbon Dioxide 28 mmol/L (23-31); Chloride 103 mmol/L (98-107); Estimated GFR-MDRD 70; Glucose 102 mg/dL (83-110); Lipase 80 U/L (8-78); Potassium 3.7 mmol/L (3.5-5.1); Protein, Total 7.2 g/dL (5.8-8.1); Sodium 136 mmol/L (136-145)
[2017-12-10 18:15] LABS: Anisocytosis SLIGHT = 6-15 cells (100X) (0-5/hpf); Band 2 % (5-11); Hypersemented Neutrophil SLIGHT; Hypochromia SLIGHT = 6-15 cells (100X) (0-5/hpf); Lymphocytes 1 % (21-51); MDiff Complete? YES; Monocytes 6 % (0-10); Neutrophil 91 % (42-75); PLT Morphology Comment Appears Increased; Polychromasia SLIGHT = 2-3 cells (100X) (0-2/hpf)
[2017-12-10 18:17] LABS: CKMB 0.4 ng/mL (0-6.6); Troponin I 0.022 ng/mL (< 0.028)
[2017-12-10 18:17] LABS: Yeast-AUWi Flag 511.7 (0-25.0)
[2017-12-10 18:29] LABS: Hyaline Casts/LPF NONE SEEN LPF (0-3 Hyaline); Yeast-All Forms None Seen HPF (None Seen)
[2017-12-10 18:30] LABS: RBC/HPF None Seen HPF (0-3)
--- NOTE | 2017-12-10 18:31 | RAD ---
CHEST ONE VIEW: 12/10/17 HISTORY: Fever. COMPARISON: Chest radiograph 11/28/17. FINDINGS: Small effusions. The heart size is enlarged. Improving pulmonary edema. IMPRESSION: 1. Small bilateral pleural effusions. 2. Cardiomegaly. 3. Severe rotator cuff arthropathy bilaterally. POS: [facility]
[2017-12-10 21:38] LABS: Troponin I 0.025 ng/mL (< 0.028)
[2017-12-10] MEDS ORDERED: Piperacillin/Tazobactam 3.375 GM in Sodium Chloride 0.9% 100 ML IVPB SCH (23:00)
[2017-12-11 01:02] LABS: Troponin I 0.048 ng/mL (< 0.028)
[2017-12-11 01:07] VITALS: BMI 28.5
[2017-12-11] MEDS ORDERED: Acetaminophen 325 MG TAB PO PRN (01:51)
[2017-12-11] MEDS ORDERED: Acetaminophen 650 MG Suppository PR PRN (01:51)
[2017-12-11] MEDS ORDERED: Ondansetron HCl/PF 4 MG/2 ML Vial IVP PRN (01:51)
[2017-12-11 02:24] LABS: #Basophils 0.1 thou/uL (0.0-0.2); #Eosinphils 0.1 thou/uL (0.0-0.7); #Lymphocytes 0.7 thou/uL (1.20-3.40); #Monocytes 1.6 thou/uL (0.11-0.59); #Neutrophils 24.2 thou/uL (1.40-6.50); %Basophils 0.2 % (0.0-1.0); %Eosinophils 0.4 % (0.0-10.0); %Lymphocytes 2.6 % (21.0-51.0); %Monocytes 5.9 % (0.0-10.0); %Neutrophils 90.9 % (42.0-75.0); Hemoglobin 12.2 g/dL (14.0-18.0); Mean Corpuscular Hemoglobin 32.3 pg (27.0-31.0); Mean Platelet Volume 7.3 fL (7.4-10.4); Platelet Count 608 thou/uL (130-400); RBC Distribution Width 13.9 % (11.5-14.5); Red Blood Cell (RBC) Count 3.78 mill/uL (4.70-6.10); White Blood Cell (WBC) Count 26.6 thou/uL (4.8-10.8)
[2017-12-11] MEDS: Cefepime 1 GM in Sodium Chloride 0.9% 100 ML IVPB SCH ×2 (02:59→17:41)
[2017-12-11] MEDS: Sodium Chloride 0.9% 1,000 ML IV SCH ×3 (03:00→21:46)
[2017-12-11 03:04] LABS: Anion Gap 9 mmol/L (10-20); BUN (Urea Nitrogen) 24 mg/dL (8.4-25.7); Calc. Creatinine Clearance 75 mL/min (70-130); Calcium 7.9 mg/dL (7.8-10.44); Carbon Dioxide 25 mmol/L (23-31); Chloride 107 mmol/L (98-107); Estimated GFR-MDRD 83; Glucose 106 mg/dL (83-110); Potassium 3.1 mmol/L (3.5-5.1); Sodium 138 mmol/L (136-145)
--- NOTE | 2017-12-11 06:39 | HP ---
REASON FOR ADMISSION: Sepsis, acute respiratory failure with hypoxia. HISTORY OF PRESENT ILLNESS: Please note the majority of this history is obtained by talking to ER physician and [facility] records as the patient is not oriented and is very difficult to arouse. The patient was sent from [facility] for respiratory distress and fever. He was saturating around 88% on room air with respiratory rates going up to 24. He had a white count of 33 with fever on arrival at 99.9 degrees here. Currently, he barely opens his eyes for sternal rub and goes back to sleep. He is in respiratory distress with respiratory rates going up to 34 at present. He appears to have wet cough. PAST MEDICAL AND SURGICAL HISTORY: History of dyslipidemia, hypertension, benign prostatic hypertrophy, gout, dementia, left fifth toe surgery, appendectomy, myelodysplastic disorder, subdural hematoma, diabetes mellitus type 2, T11-T12 vertebral fracture, recurrent falls. CURRENT MEDICATIONS: The patient is on hydroxyurea 500 mg p.o. daily, Uloric 40 mg daily, metoprolol 25 mg twice daily, Lipitor 20 mg at bedtime, terazosin 2 mg p.o. at bedtime, Protonix 40 mg p.o. daily. ALLERGIES: No known drug allergies. PERSONAL HISTORY: Does not abuse alcohol or drugs. No history of smoking. He is a resident of [facility]. FAMILY HISTORY: Cannot be obtained as the patient is not oriented. REVIEW OF SYSTEMS: Cannot be obtained as patient is not oriented. PHYSICAL EXAMINATION: GENERAL: The patient is an 87-year-old male who is currently in moderate to severe respiratory distress. VITAL SIGNS: Blood pressure 118/58, pulse 98 per minute, respiratory rate 30 per minute, temperature 99.9 degrees Fahrenheit, saturating 92% on 3 liters nasal cannula. NECK: Supple, no elevated JVD. HEENT: Eyes; extraocular muscles intact. Pupils reacting to light. Oral cavity; mucous membranes are dry. There is mild petechial bleeding over the gums. CARDIOVASCULAR: S1, S2 heard. Regular rhythm. RESPIRATORY: Air entry 1+ bilateral. Scattered rales plus bilateral rhonchi plus bilateral. ABDOMEN: Soft, bowel sounds heard. No tenderness, rigidity or guarding. EXTREMITIES: No peripheral edema or calf tenderness. VASCULAR: Peripheral pulses 1+ bilateral, no ischemic ulcerations or gangrene. CENTRAL NERVOUS SYSTEM: No gross focal signs seen. The patient is currently obtunded and barely awakens to sternal rub. PSYCHIATRIC: Cannot be assessed due to patient's current cognitive status. LABORATORY AND X-RAY FINDINGS: White count of 31.5, H&H 13 and 42, platelet count 754 with 91% neutrophils. Electrolytes are stable. BUN 25, creatinine 1.0. Serum glucose 102, AST 57, ALT 62, alkaline phosphatase 252. Troponin I is indeterminate peaking up to 0.04, CK-MB 0.4. BNP is 86, albumin is 3.2, globulin 4.0, lipase is 80. UA shows small leukocyte esterase with 1+ bacteria with also greater than 50 WBCs seen. Chest x-ray done shows bilateral pleural effusions with cardiomegaly. EKG done shows sinus rhythm at 95 beats per minute. There is incomplete RBBB seen with low voltage, there is also Q-waves seen in lead II, III, AVF. CLINICAL IMPRESSION AND PLAN: The patient will be admitted to telemetry for sepsis, acute respiratory failure with hypoxia. Acosta cultures have been obtained in the ER and he will be placed on cefepime, Levaquin and vancomycin. We will also place him on stress dose of steroids in view of his respiratory distress and likely poor prognosis. He will be on normal saline at 70 mL per hour for now in view of him sounding wet on clinical exam with rales. We will continue him on Toprol-XL small dose for cardiac protection and terazosin for his prostate. His overall prognosis is poor. I have communicated this to his brother, Mr. Radha Phillips. The number to reach him is [phone]. The patient is a DNR and I have confirmed this with Mr. Radha Phillips, the brother of the patient and POA. We will continue to closely monitor him on telemetry. Please note I have seen and examined patient on 12/10/2017. [facility]
[2017-12-11] MEDS ORDERED: Prevnar 13-Val Conj/PF 0.5 ML SYRINGE IM ONE (09:00)
--- NOTE | 2017-12-11 10:05 | PDOC.PN ---
- Subjective Encounter Start Date: 12/11/17 Encounter Start Time: 10:03 Subjective: responds, "feel good" - Objective Resuscitation Status: Resuscitation Status DNR:Do Not Resuscitate MAR Reviewed: Yes Vital Signs & Weight: Vital Signs (12 hours) Temp Pulse Resp BP BP Pulse Ox 12/11/17 08:15 98.6 F 86 24 H 131/63 95 12/11/17 04:00 98.1 F 104 H 16 141/68 H 93 L 12/11/17 02:28 96 12/11/17 00:00 98.5 F 86 18 155/66 H 94 L I&O: 12/10/17 12/11/17 12/12/17 06:59 06:59 06:59 Intake Total 0 Balance 0 Result Diagrams: 12/11/17 02:00 12/11/17 02:00 Phys Exam - Physical Examination Neck: no JVD Respiratory: clear to auscultation bilateral except few scattered rhonchi Cardiovascular: RRR with freq premature beats Gastrointestinal: soft, positive bowel sounds Musculoskeletal: edema present Dx/Plan (1) Sepsis Code(s): A41.9 - SEPSIS, UNSPECIFIED ORGANISM Status: Acute Qualifiers: Sepsis type: sepsis due to unspecified organism Qualified Code(s): A41.9 - Sepsis, unspecified organism (2) Acute respiratory failure with hypoxemia Code(s): J96.01 - ACUTE RESPIRATORY FAILURE WITH HYPOXIA Status: Acute (3) UTI (urinary tract infection) Status: Acute Qualifiers: Urinary tract infection type: site unspecified Hematuria presence: without hematuria Qualified Code(s): N39.0 - Urinary tract infection, site not specified (4) Dementia Code(s): F03.90 - UNSPECIFIED DEMENTIA WITHOUT BEHAVIORAL DISTURBANCE Status: Chronic (5) Hypertension Code(s): I10 - ESSENTIAL (PRIMARY) HYPERTENSION Status: Chronic Qualifiers: Hypertension type: essential hypertension Qualified Code(s): I10 - Essential (primary) hypertension (6) Myeloproliferative disorder Code(s): D47.1 - CHRONIC MYELOPROLIFERATIVE DISEASE Status: Chronic Comment : has JAK4 myeloproliferative disorder per prior onc notes - Plan cultures pending -: continue broad spectrum iv anibx -: monitor CBC, BMP daily -: DNR- move to medical * .
[2017-12-11] MEDS: Enoxaparin Sodium 40 MG/0.4 ML SYRINGE SC SCH (10:23)
[2017-12-11] MEDS: Famotidine/PF 20 mg/2ml Vial SLOW IVP SCH ×2 (10:23→21:45)
[2017-12-11] MEDS: Vancomycin HCl 1.75 GM in Sodium Chloride 0.9% 500 ML IVPB SCH (13:35)
[2017-12-11] MEDS: Hydroxyurea 500 MG CAP PO SCH (14:32)
[2017-12-11] MEDS: Terazosin HCl 1 MG CAP PO SCH (21:31)
[2017-12-12] MEDS: Cefepime 1 GM in Sodium Chloride 0.9% 100 ML IVPB SCH ×2 (02:22→14:00)
--- NOTE | 2017-12-12 02:59 | PDOC.EVN ---
Event Note - Event Note Event Note: new onset afib with RVR here with SOB, PNA, no gross change from earlier today's SOB rec'd home metoprolol (held earlier in the day) 12 lead EKG troponin, TSH, BMP, Mg ordered transfer to tele for monitoring close monitoring of SBP suspect related to sepsis and PNA ASA for A/C as pt is high fall risk, no further A/C at this point in time d/w bedside nsg
[2017-12-12 04:02] LABS: Anion Gap 16 mmol/L (10-20); BUN (Urea Nitrogen) 31 mg/dL (8.4-25.7); Calc. Creatinine Clearance 62 mL/min (70-130); Calcium 8.3 mg/dL (7.8-10.44); Carbon Dioxide 22 mmol/L (23-31); Chloride 106 mmol/L (98-107); Estimated GFR-MDRD 67; Glucose 116 mg/dL (83-110); Magnesium 1.8 mg/dL (1.6-2.6); Potassium 3.1 mmol/L (3.5-5.1); Sodium 141 mmol/L (136-145)
[2017-12-12 04:03] LABS: Troponin I 0.019 ng/mL (< 0.028)
[2017-12-12] MEDS ORDERED: Diltiazem 125 MG in Sodium Chloride 0.9% 100 ML IVPB SCH ×2 (04:15→08:45)
--- NOTE | 2017-12-12 08:42 | PDOC.PN ---
- Subjective Encounter Start Date: 12/12/17 Encounter Start Time: 08:40 Subjective: "fine" - Objective Resuscitation Status: Resuscitation Status DNR:Do Not Resuscitate MAR Reviewed: Yes Vital Signs & Weight: Vital Signs (12 hours) Temp Pulse Resp BP BP Pulse Ox 12/12/17 07:14 97.4 F L 108 H 18 108/61 94 L 12/12/17 04:00 98 F 140 H 21 H 94 L 12/12/17 03:32 98 F 140 H 21 H 92/72 94 L 12/12/17 02:45 98.5 F 160 H 26 H 160/85 H 94 L 12/12/17 00:20 98.4 F 95 18 162/81 H 94 L Weight Weight 203 lb 1.6 oz I&O: 12/11/17 12/12/17 12/13/17 06:59 06:59 06:59 Intake Total 0 1050 Balance 0 1050 Result Diagrams: 12/11/17 02:00 12/12/17 03:11 Additional Labs: Accuchecks 12/11/17 19:05 POC Glucose 108 EKG Reviewed by me: Yes (Atrial fib with RVR) Phys Exam - Physical Examination Neck: no JVD Respiratory: clear to auscultation bilateral Cardiovascular: no significant murmur, irregular tachy Gastrointestinal: soft, non-tender, positive bowel sounds Musculoskeletal: edema present Dx/Plan (1) Sepsis Code(s): A41.9 - SEPSIS, UNSPECIFIED ORGANISM Status: Acute Qualifiers: Sepsis type: sepsis due to unspecified organism Qualified Code(s): A41.9 - Sepsis, unspecified organism (2) Acute respiratory failure with hypoxemia Code(s): J96.01 - ACUTE RESPIRATORY FAILURE WITH HYPOXIA Status: Acute (3) UTI (urinary tract infection) Status: Acute Qualifiers: Urinary tract infection type: site unspecified Hematuria presence: without hematuria Qualified Code(s): N39.0 - Urinary tract infection, site not specified (4) Dementia Code(s): F03.90 - UNSPECIFIED DEMENTIA WITHOUT BEHAVIORAL DISTURBANCE Status: Chronic (5) Hypertension Code(s): I10 - ESSENTIAL (PRIMARY) HYPERTENSION Status: Chronic Qualifiers: Hypertension type: essential hypertension Qualified Code(s): I10 - Essential (primary) hypertension (6) Myeloproliferative disorder Code(s): D47.1 - CHRONIC MYELOPROLIFERATIVE DISEASE Status: Chronic Comment : has JAK4 myeloproliferative disorder per prior onc notes (7) Atrial fibrillation with rapid ventricular response Code(s): I48.91 - UNSPECIFIED ATRIAL FIBRILLATION Status: Acute - Plan cont iv antibx -: on iv diltiazem, rate still >100, increase to 10mh/hr -: no lovenox- age, frquent falls -: deescalate solumedrol * .
[2017-12-12] MEDS: Famotidine/PF 20 mg/2ml Vial SLOW IVP SCH (08:48)
[2017-12-12] MEDS: Enoxaparin Sodium 40 MG/0.4 ML SYRINGE SC SCH (08:48)
[2017-12-12] MEDS: Hydroxyurea 500 MG CAP PO SCH (09:09)
[2017-12-12 11:37] LABS: Vancomycin, Trough 13.1 ug/mL
[2017-12-12] MEDS ORDERED: Amiodarone In Dextrose 200 ML IVPB SCH (13:00)
--- NOTE | 2017-12-12 13:22 | CON ---
DATE OF CONSULTATION: 12/12/2017 REASON FOR CONSULTATION: Atrial fibrillation, RVR. HISTORY OF PRESENT ILLNESS: Mr. Phillips is a pleasant 87-year-old white gentleman who comes to the [facility] for respiratory failure and hypoxia. He was found to have a fever, breathing about 24 times a minute, satting 88% on room air. He was admitted for sepsis. He eventually went into atrial fibril lation RVR, so Cardiology is being consulted for this. He was started on a diltiazem drip; however, his blood pressure has dropped some. He currently continues to be confused. PAST MEDICAL HISTORY: 1. Hyperlipidemia. 2. Hypertension. 3. BPH. 4. Gout. 5. Dementia. 6. Appendectomy. 7. Myelodysplastic disorder. 8. Subdural hematoma in the past. 9. Type 2 diabetes. 10. T11 and 12 vertebral fracture. 11. Recurrent falls. OUTPATIENT MEDICATIONS: 1. Hydroxyurea. 2. Uloric. 3. Metoprolol 25 mg b.i.d. 4. Metoprolol 20 mg at bedtime. 5. Terazosin 2 mg daily. 6. Protonix 40 mg a day. ALLERGIES: No known drug allergies. SOCIAL HISTORY: No alcohol, tobacco or drugs. FAMILY HISTORY: Noncontributory. REVIEW OF SYSTEMS: Cannot be obtained as the patient remains confused. PHYSICAL EXAMINATION: VITAL SIGNS: Heart rate 140, blood pressure 98/60, respiratory rate 30, satting 92% on 3 liters. GENERAL: Awake, alert, oriented to person only, in no distress. HEENT: Normocephalic, atraumatic. NECK: Supple. LUNGS: Coarse breath sounds. CARDIOVASCULAR: S1, S2, no S3, S4, irregular regular heart rate in the 140s. ABDOMEN: Soft, positive bowel sounds. EXTREMITIES: No edema. SKIN: Warm and dry. LABORATORY WORK: Reviewed. White count of 31, hemoglobin of 13, platelet count 754. Chemistries we re reviewed. Potassium was little low at 3.1, but normal GFR 67 and 83 before that. UA was reviewed . Vancomycin levels were reviewed. Blood cultures remain negative so far. Telemetry was reviewed, AFib, RVR. ASSESSMENT AND PLAN: 1. Atrial fibrillation with rapid ventricular response: We will start amiodarone drip. We will sto p diltiazem drip as he is getting a little hypotensive. Aspirin alone for stroke prophylaxis as he h as high fall risk. 2. Sepsis: He has improved with IV Demadex. I do not think we have a source quite yet. 3. We will get an echocardiogram to assess LV function and valvular structures. 4. Hopefully, he will convert in the next few hours. Thank you for letting us to participate in the care of your patient. We will follow.
[2017-12-12] MEDS: Vancomycin HCl 1.75 GM in Sodium Chloride 0.9% 500 ML IVPB SCH (13:55)
[2017-12-12] MEDS: Amiodarone 200 MG TAB PO SCH (20:50)
[2017-12-12] MEDS: Famotidine 20 MG TAB PO SCH (20:51)
[2017-12-12] MEDS: Terazosin HCl 1 MG CAP PO SCH (20:51)
[2017-12-13] MEDS: Cefepime 1 GM in Sodium Chloride 0.9% 100 ML IVPB SCH (03:47)
[2017-12-13] MEDS: Sodium Chloride 0.9% 1,000 ML IV SCH ×2 (03:51→11:29)
[2017-12-13 04:14] LABS: #Eosinphils 0.1 thou/uL (0.0-0.7); #Lymphocytes 0.4 thou/uL (1.20-3.40); #Monocytes 0.5 thou/uL (0.11-0.59); #Neutrophils 19.5 thou/uL (1.40-6.50); %Basophils 0.1 % (0.0-1.0); %Eosinophils 0.3 % (0.0-10.0); %Lymphocytes 1.9 % (21.0-51.0); %Monocytes 2.7 % (0.0-10.0); %Neutrophils 95.1 % (42.0-75.0); Hemoglobin 11.8 g/dL (14.0-18.0); Mean Corpuscular HGB CONC 31.6 g/dL (32.0-36.0); Mean Corpuscular Hemoglobin 31.9 pg (27.0-31.0); Platelet Count 650 thou/uL (130-400); RBC Distribution Width 13.8 % (11.5-14.5); White Blood Cell (WBC) Count 20.5 thou/uL (4.8-10.8)
[2017-12-13 04:33] LABS: ALT (SGPT) 51 U/L (8-55); AST (SGOT) 54 U/L (5-34); Albumin 2.9 g/dL (3.4-4.8); Alkaline Phosphatase 205 U/L (40-150); Anion Gap 9 mmol/L (10-20); BUN (Urea Nitrogen) 44 mg/dL (8.4-25.7); Bilirubin, Total 0.6 mg/dL (0.2-1.2); Calc. Creatinine Clearance 62 mL/min (70-130); Carbon Dioxide 21 mmol/L (23-31); Chloride 113 mmol/L (98-107); Estimated GFR-MDRD 61; Globulin 3.5 g/dL (2.4-3.5); Glucose 124 mg/dL (83-110); Potassium 3.2 mmol/L (3.5-5.1); Protein, Total 6.4 g/dL (5.8-8.1); Sodium 140 mmol/L (136-145)
--- NOTE | 2017-12-13 08:15 | PDOC.PN ---
- Subjective Encounter Start Date: 12/13/17 Encounter Start Time: 08:14 - Objective Resuscitation Status: Resuscitation Status DNR:Do Not Resuscitate MAR Reviewed: Yes Vital Signs & Weight: Vital Signs (12 hours) Temp Pulse Resp BP Pulse Ox 12/13/17 07:00 97.4 F L 83 20 136/49 L 93 L 12/13/17 06:41 95 12/13/17 06:15 71 24 H 95 12/13/17 03:49 97.4 F L 62 21 H 128/57 L 95 12/12/17 23:49 97.6 F 69 20 124/50 L 96 Weight Weight 190 lb I&O: 12/12/17 12/13/17 12/14/17 06:59 06:59 06:59 Intake Total 1050 2780 Balance 1050 2780 Result Diagrams: 12/13/17 03:19 12/13/17 03:19 Additional Labs: Accuchecks 12/12/17 03:10 POC Glucose 106 Phys Exam - Physical Examination Neck: no JVD some stridor over neck no focal findings Cardiovascular: RRR, no significant murmur Gastrointestinal: soft, non-tender, positive bowel sounds Musculoskeletal: edema present Dx/Plan (1) Sepsis Code(s): A41.9 - SEPSIS, UNSPECIFIED ORGANISM Status: Acute Qualifiers: Sepsis type: sepsis due to unspecified organism Qualified Code(s): A41.9 - Sepsis, unspecified organism (2) Acute respiratory failure with hypoxemia Code(s): J96.01 - ACUTE RESPIRATORY FAILURE WITH HYPOXIA Status: Acute (3) UTI (urinary tract infection) Status: Acute Qualifiers: Urinary tract infection type: site unspecified Hematuria presence: without hematuria Qualified Code(s): N39.0 - Urinary tract infection, site not specified (4) Dementia Code(s): F03.90 - UNSPECIFIED DEMENTIA WITHOUT BEHAVIORAL DISTURBANCE Status: Chronic Qualifiers: Dementia type: unspecified type Dementia behavioral disturbance: with behavioral disturbance Qualified Code(s): F03.91 - Unspecified dementia with behavioral disturbance (5) Hypertension Code(s): I10 - ESSENTIAL (PRIMARY) HYPERTENSION Status: Chronic Qualifiers: Hypertension type: essential hypertension Qualified Code(s): I10 - Essential (primary) hypertension (6) Myeloproliferative disorder Code(s): D47.1 - CHRONIC MYELOPROLIFERATIVE DISEASE Status: Chronic Comment : has JAK4 myeloproliferative disorder per prior onc notes (7) Atrial fibrillation with rapid ventricular response Code(s): I48.91 - UNSPECIFIED ATRIAL FIBRILLATION Status: Acute - Plan now in RSR- cont amiodarone -: sepsis/ uti- enterococcus- deescalate antbx to iv ampicillin -: cont to monitor CBC -: cont solu-medrol deesclate slowly * .
[2017-12-13] MEDS: Enoxaparin Sodium 40 MG/0.4 ML SYRINGE SC SCH (08:17)
[2017-12-13] MEDS: Amiodarone 200 MG TAB PO SCH ×2 (08:17→20:24)
[2017-12-13] MEDS: Hydroxyurea 500 MG CAP PO SCH (08:18)
[2017-12-13] MEDS: Famotidine 20 MG TAB PO SCH ×2 (08:18→20:24)
[2017-12-13] MEDS: Ampicillin 1 GM in Sodium Chloride 0.9% 100 ML IVPB SCH ×3 (11:29→23:13)
--- NOTE | 2017-12-13 11:48 | PRG ---
DATE OF SERVICE: 12/13/2017 CARDIOLOGY FOLLOWUP HISTORY: Mr. Flood breathing is about the same. No chest pain. He is in normal sinus rhythm. PHYSICAL EXAMINATION: VITAL SIGNS: Blood pressure 136/49, pulse 83 regular. LUNGS: Some expiratory wheezing. CARDIAC: Normal S1, normal S2. ABDOMEN: Soft, nontender. EXTREMITIES: No edema. ASSESSMENT: 1. Sepsis. 2. Paroxysmal atrial fibrillation in sinus rhythm. 3. Wheezing. PLAN: 1. He is on steroids. 2. He is on metoprolol, I would reduce the dose in view of the wheezing. 3. On low dose amiodarone, probably would not be a great idea to keep him on long-term amiodarone in view of the wheezing, but for now, does seem to be maintaining sinus rhythm. Dr. Martinez will see this weekend. Dr. Rios will resume care next week.
[2017-12-13 12:55] LABS: Vancomycin, Trough 17.5 ug/mL
[2017-12-13] MEDS ORDERED: Vancomycin HCl 1.75 GM in Sodium Chloride 0.9% 500 ML IVPB SCH (13:00)
[2017-12-13] MEDS ORDERED: Potassium Chloride 20 MEQ TAB PO SCH (13:30)
[2017-12-13] MEDS: Vancomycin HCl 1.75 GM in Sodium Chloride 0.9% 500 ML IVPB SCH (13:38)
--- NOTE | 2017-12-13 13:54 | CON ---
DATE OF CONSULTATION: 12/13/2017 REASON FOR CONSULTATION: Possible infection. HISTORY OF PRESENT ILLNESS: An 87-year-old gentleman who has a history of dyslipidemia, hypertension , and BPH as well as a myeloproliferative disorder who was admitted because of fever and respiratory distress. On arrival, the fever as described as low grade. The patient was also disoriented and cou ld not report a history. There was some cough associated with it. No seizure activity, no diarrhea, no abdominal pain, no chest pain. The initial findings in the emergency room included a BP 118/58, pulse 97, temperature 99.9, O2 saturation 92% on 3 liters nasal cannula. The pupils are equal and re active. The oral examination showed dry mouth. Neck is supple. Lungs with symmetric breath sounds, but diminished at the bases. Mild crackles inspiratory. Heart examination was normal. Abdomen was soft, not tender. The patient has small little cuts in the right knee skin area with healing scabs in the forehead noted. Initial laboratory data, white cell count was 31,000, hemoglobin 13, platelet s 754 with 91% neutrophils. Sodium 141, creatinine 1.05, AST 57, ALT 62, alkaline phosphatase 252, a lbumin 3.2, globulin 4.0. Urinalysis with greater than 50 WBCs. Microbiology thus far with 2 sets o f negative blood cultures, presumptive enterococcus species and alpha hemolytic strep and urine cultu re straight catheterization greater than 100,000 CFUs per mL. Initial impression was sepsis, respira tory insufficiency with hypoxemia. He was placed on Levaquin, cefepime and vancomycin and given stre ss dose of steroids. The patient upon conversations with the relative in the room, the patient had b een transferred from [facility] and I was able to speak with the nurse at the nursing ome and according to her own account, the only reason, the patient was transferred is because of the findings in the CBC that have been drawn the same day of the admission. White cells were found eleva felipe. The nurse herself did not find any report that suggested any change in patient's clinical statu s. Patient had been on palliative care up until that point and the family decided to admit him becau se of the findings in the WBC counts. REVIEW OF SYSTEMS: Currently, Mr. Phillips is little bit drowsy. He establishes eye contact, but has difficulty in remembering anything. He really does not have enough cognitive ability to give me a re port of his subjective status. He follows some commands intermittently. There has been no reported seizure activity, no diarrhea, no reported pain or skin ulcerations and he was voiding spontaneously. PAST MEDICAL HISTORY: Includes JAK2 myeloproliferative disorder treated with hydroxyurea, hypertensi on, BPH, dementia with significant neurological impairment, cognitive dysfunction, vertebral fracture s from recent and recurrent falls, type 2 diabetes. MEDICATIONS: Hydroxyurea, Uloric, metoprolol, Lipitor, terazosin, Protonix, and he is also receiving cefepime, levofloxacin, Medrol, vancomycin. ALLERGIES: None. SOCIAL HISTORY: He is a [employer] residents, never a smoker. FAMILY HISTORY: Not remarkable. PHYSICAL EXAMINATION: VITAL SIGNS: T-max 99.6, is currently 97.4; blood pressure 130/40; pulse 83; respirations 20; O2 sat 93%. SKIN: No significant areas of skin breakdown. There is a little bit of maceration and discoloration of the presacral region. The patient is voiding spontaneously without a Clark catheter, peripheral IV access. No lymphadenopathy. HEENT: He has desiccated teeth, few remaining, desiccated mouth mucosa, no lesions. NECK: Stiff to all directions. Ocular movements are conjugate. Some blepharitis noted. LUNGS: Symmetric air entry without wheezing or crackles. CARDIOVASCULAR: S1, S2, regular rate. No S3, S4. ABDOMEN: Soft and not distended or tender. No ascites. No bladder distention. EXTREMITIES: He has diffuse stiffness. Plantar responses are flexure of 12. Pulses 1+ and dorsalis pedis. Some element of degenerative joint disease in knees and ankles. NEUROLOGIC: He is awake. He establishes eye contact, but pretty much the only thing he can answer i s his name. He does follow some commands, but he has severe cognitive dysfunction which is chronic. LABORATORY DATA AND X-RAY FINDINGS: Followup white cell count 1.5, hemoglobin 11.8, platelets 650, 9 5% neutrophils. Sodium 136, creatinine 1.01. AST 54, alkaline phosphatase 205, ALT 51, albumin 2.9. We have an abdomen and pelvis CT from 08/15/2017 which showed a T12 fracture, fluid in the right he mipelvis. No splenic or hepatic laceration. Liver, spleen and gallbladder appeared unremarkable and chest x-ray done this time, small bilateral pleural effusions, cardiomegaly; rotator cuff arthropath y, bilateral. ASSESSMENT: 1. Myeloproliferative disorder with positive JAK2 mutation, on hydroxyurea. 2. Elevated white blood cell count, which led the patient's admission. 3. Other findings as reported above including low-grade temperature elevation, some abnormalities in lung functions and evidence of early congestive heart failure. DISCUSSION: The patient may have developed CHF, possibly due to diastolic dysfunction. His last tra nsthoracic echocardiogram is from 2012 and it did show diastolic dysfunction at that time. The findi ngs are not consistent with pneumonia, although that is not yet ruled out. Would consider narrowing down antimicrobial therapy may be to just Rocephin or just Levaquin, discontinue vancomycin and cefep navarro. The invasive UTIs are another possibility. Other things are being equal, I would probably reev aluated his abdomen and pelvis CT to make sure he does not have evidence to suggestive of pyelonephri tis since he cannot give us a proper personal account of his clinical symptoms. Evidently, he had be en on palliative care. The other approach would be to just manage this conservatively switching to a single antimicrobial therapy and then discharge planning. Most of the elevation in WBC count is rel ated to his underlying myeloproliferative disorder.
[2017-12-13] MEDS: Terazosin HCl 1 MG CAP PO SCH (20:23)
[2017-12-14] MEDS: Sodium Chloride 0.9% 1,000 ML IV SCH (03:09)
[2017-12-14 05:00] LABS: ALT (SGPT) 53 U/L (8-55); AST (SGOT) 49 U/L (5-34); Albumin 3.2 g/dL (3.4-4.8); Alkaline Phosphatase 192 U/L (40-150); Anion Gap 8 mmol/L (10-20); BUN (Urea Nitrogen) 40 mg/dL (8.4-25.7); Bilirubin, Total 0.6 mg/dL (0.2-1.2); Calc. Creatinine Clearance 62 mL/min (70-130); Calcium 8.1 mg/dL (7.8-10.44); Carbon Dioxide 23 mmol/L (23-31); Chloride 116 mmol/L (98-107); Estimated GFR-MDRD 66; Globulin 3.6 g/dL (2.4-3.5); Glucose 132 mg/dL (83-110); Potassium 3.8 mmol/L (3.5-5.1); Protein, Total 6.8 g/dL (5.8-8.1); Sodium 143 mmol/L (136-145)
[2017-12-14] MEDS: Ampicillin 1 GM in Sodium Chloride 0.9% 100 ML IVPB SCH ×4 (05:07→23:57)
[2017-12-14 05:36] LABS: Band 4 % (5-11); Hemoglobin 12.6 g/dL (14.0-18.0); Hypochromia SLIGHT = 6-15 cells (100X) (0-5/hpf); MDiff Complete? YES; Mean Corpuscular HGB CONC 31.6 g/dL (32.0-36.0); Mean Corpuscular Hemoglobin 31.9 pg (27.0-31.0); Mean Platelet Volume 7.6 fL (7.4-10.4); Monocytes 1 % (0-10); Neutrophil 95 % (42-75); PLT Morphology Comment Appears Increased; Platelet Count 690 thou/uL (130-400); RBC Distribution Width 13.9 % (11.5-14.5); Red Blood Cell (RBC) Count 3.95 mill/uL (4.70-6.10); White Blood Cell (WBC) Count 23.8 thou/uL (4.8-10.8)
[2017-12-14] MEDS: Enoxaparin Sodium 40 MG/0.4 ML SYRINGE SC SCH (08:49)
--- NOTE | 2017-12-14 09:43 | PDOC.PN ---
- Subjective Encounter Start Date: 12/14/17 Encounter Start Time: 09:42 Subjective: confused, grunting - Objective Resuscitation Status: Resuscitation Status DNR:Do Not Resuscitate MAR Reviewed: Yes Vital Signs & Weight: Vital Signs (12 hours) Temp Pulse Resp BP Pulse Ox 12/14/17 08:13 86 20 98 12/14/17 07:26 97.6 F 87 20 157/68 H 97 12/14/17 04:48 97.2 F L 93 21 H 152/70 H 94 L 12/14/17 03:06 94 20 96 12/14/17 00:15 89 22 H 140/77 96 Weight Weight 194 lb 9.6 oz I&O: 12/13/17 12/14/17 12/15/17 06:59 06:59 06:59 Intake Total 2780 5277 Balance 2780 5277 Result Diagrams: 12/14/17 04:35 12/14/17 04:35 Phys Exam - Physical Examination Neck: no JVD wheezes, rhonchi all mary Cardiovascular: RRR, no significant murmur Gastrointestinal: soft, positive bowel sounds Musculoskeletal: edema present Dx/Plan (1) Sepsis Code(s): A41.9 - SEPSIS, UNSPECIFIED ORGANISM Status: Acute Qualifiers: Sepsis type: sepsis due to unspecified organism Qualified Code(s): A41.9 - Sepsis, unspecified organism (2) Acute respiratory failure with hypoxemia Code(s): J96.01 - ACUTE RESPIRATORY FAILURE WITH HYPOXIA Status: Acute (3) UTI (urinary tract infection) Status: Acute Qualifiers: Urinary tract infection type: site unspecified Hematuria presence: without hematuria Qualified Code(s): N39.0 - Urinary tract infection, site not specified (4) Dementia Code(s): F03.90 - UNSPECIFIED DEMENTIA WITHOUT BEHAVIORAL DISTURBANCE Status: Chronic Qualifiers: Dementia type: unspecified type Dementia behavioral disturbance: with behavioral disturbance Qualified Code(s): F03.91 - Unspecified dementia with behavioral disturbance (5) Hypertension Code(s): I10 - ESSENTIAL (PRIMARY) HYPERTENSION Status: Chronic Qualifiers: Hypertension type: essential hypertension Qualified Code(s): I10 - Essential (primary) hypertension (6) 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
[2017-12-14 10:01] LABS: CO2 Tension 43.4 mmHg (35.0-45.0); O2 Tension (PaO2) 60.4 mmHg (80.0-100.0); pH, Arterial 7.34 (7.35-7.45)
[2017-12-14 10:02] LABS: Base Excess (BEa) 2.7 mEq/L (0 (+/-) 2.5); Hematocrit-ABG 38.7 % (42.0-52.0); Hemoglobin (Hb) 11.8 g/dL (14.0-18.0)
[2017-12-14 10:04] LABS: Puncture Site LR
[2017-12-14] MEDS ORDERED: Furosemide 40 MG/4 ML VIAL SLOW IVP SCH (10:30)
[2017-12-14] MEDS: Hydroxyurea 500 MG CAP PO SCH (10:37)
[2017-12-14] MEDS: Famotidine 20 MG TAB PO SCH ×2 (10:37→22:03)
[2017-12-14] MEDS: Amiodarone 200 MG TAB PO SCH ×2 (10:38→22:03)
--- NOTE | 2017-12-14 11:59 | RAD ---
RADIOGRAPH CHEST 1 VIEW: Date: 12/14/17 Time: 0948 HOURS HISTORY: 87-year-old male status post aspiration. COMPARISON: 11/28/17. FINDINGS: The lungs are very hypoinflated, and the current study is in a very lordotic position. This makes it difficult to compare with the prior study. There is magnification of the cardiac shadow. Interstitial markings are diffusely asymmetrically more prominent on the right side than the left. Horizontally o riented linear densities at the right lower lung zone probably represent subsegmental atelectasis, ap parently new since the prior study. No pneumothorax is identified. IMPRESSION: 1. Limited study because of positioning and hypoinflated lungs. 2. Prominent right-sided interstitial markings. GABRIELA [] POS: JASVIR
--- NOTE | 2017-12-14 14:23 | PDOC.EVN ---
Event Note - Event Note Event Note: CXR- increased infiltrate on RLL , suspect aspiration. NPO, iv fluids for now
--- NOTE | 2017-12-14 14:44 | EKG ---
Test Reason : Blood Pressure : / mmHG Vent. Rate : 095 BPM Atrial Rate : 095 BPM P-R Int : 178 ms QRS Dur : 098 ms QT Int : 368 ms P-R-T Axes : 014 -43 -15 degrees QTc Int : 462 ms Sinus rhythm with occasional Premature ventricular complexes Left axis deviation Incomplete right bundle branch block Minimal voltage criteria for LVH, may be normal variant Inferior infarct , age undetermined Anterolateral infarct , age undetermined Abnormal ECG Confirmed by KENNY NIELSON M.D. ([id number]), acquisition editor CARO CRUZ ([id number]) on 12/14/2017 2:44:37 PM Referred By: Confirmed By:KENNY NIELSON M.D.
[2017-12-14] MEDS: Terazosin HCl 1 MG CAP PO SCH (22:04)
--- NOTE | 2017-12-14 23:28 | PRG ---
DATE OF SERVICE: 12/14/2017 SUBJECTIVE: Mr. Phillips was seen this morning on rounds. He certainly seems to be more confused than he was before. He seems to be less responsive. There are no family members present today. OBJECTIVE: VITAL SIGNS: His blood pressure is 152/70, he is afebrile, heart rate is 93, and respiratory rate is 21. VITAL SIGNS: He is arousable, but seems to be more fatigued today. LUNGS: He has increased upper airway noise, some of this has been moaning and groaning today and thi s is according to the nursing staff he is less responsive than he was yesterday. He does have rhonch i throughout all lung mary and there is expiratory wheezing. CARDIOVASCULAR: He still remains in regular rate and rhythm. I do not see any significant lower ext remity edema. It is only mild. ABDOMEN: Appears to be soft and nontender. IMPRESSION: 1. Probable sepsis of uncertain etiology. He is on antibiotics. 2. Atrial fibrillation with rapid ventricular response. At this time, he remains in sinus at 81 spencer ts per minute. 3. Possible aspiration pneumonia due to the change in mental status and also due to the coarse rhonc hi that are audible. I believe chest x-ray will be in order. White blood cell count also was elevat ed at 23.8, platelet count 690,000, and hemoglobin 12.6. We will continue to follow the patient with you. At this time, he remains in sinus rhythm.
[2017-12-15 04:49] LABS: ALT (SGPT) 47 U/L (8-55); AST (SGOT) 41 U/L (5-34); Albumin 3.2 g/dL (3.4-4.8); Alkaline Phosphatase 169 U/L (40-150); Anion Gap 8 mmol/L (10-20); BUN (Urea Nitrogen) 33 mg/dL (8.4-25.7); Bilirubin, Total 0.7 mg/dL (0.2-1.2); Calc. Creatinine Clearance 61 mL/min (70-130); Calcium 8.3 mg/dL (7.8-10.44); Carbon Dioxide 30 mmol/L (23-31); Chloride 109 mmol/L (98-107); Estimated GFR-MDRD 63; Globulin 3.5 g/dL (2.4-3.5); Glucose 112 mg/dL (83-110); Potassium 3.5 mmol/L (3.5-5.1); Protein, Total 6.7 g/dL (5.8-8.1); Sodium 143 mmol/L (136-145)
[2017-12-15 05:00] LABS: Band 2 % (5-11); Hemoglobin 12.3 g/dL (14.0-18.0); MDiff Complete? YES; Mean Corpuscular HGB CONC 30.5 g/dL (32.0-36.0); Mean Corpuscular Hemoglobin 30.8 pg (27.0-31.0); Mean Platelet Volume 7.5 fL (7.4-10.4); Monocytes 3 % (0-10); Neutrophil 95 % (42-75); PLT Morphology Comment Appears Increased; Platelet Count 680 thou/uL (130-400); White Blood Cell (WBC) Count 24.6 thou/uL (4.8-10.8)
[2017-12-15] MEDS: Ampicillin 1 GM in Sodium Chloride 0.9% 100 ML IVPB SCH ×3 (06:15→17:24)
[2017-12-15] MEDS: Enoxaparin Sodium 40 MG/0.4 ML SYRINGE SC SCH (08:36)
[2017-12-15] MEDS: Amiodarone 200 MG TAB PO SCH ×2 (08:39→20:34)
[2017-12-15] MEDS: Hydroxyurea 500 MG CAP PO SCH (08:40)
[2017-12-15] MEDS: Famotidine 20 MG TAB PO SCH ×2 (08:40→20:34)
--- NOTE | 2017-12-15 14:15 | PDOC.PN ---
- Subjective Encounter Start Date: 12/15/17 Encounter Start Time: 14:45 -: old records requested/rev Pt seen and examined, chart reviewed in its entirety. This is my first visit with this patient. Pt nonverbal, lying in bed, opens eyes to verbal or tactile stimuli, not talking. not communicating. did say no when asked if he was in pain. No acute events, no f/C, no N/V/d/c. - Objective Resuscitation Status: Resuscitation Status DNR:Do Not Resuscitate MAR Reviewed: Yes Vital Signs & Weight: Vital Signs (12 hours) Temp Pulse Resp BP BP Pulse Ox 12/15/17 11:12 97.4 F L 85 24 H 168/79 H 96 12/15/17 10:51 81 20 95 12/15/17 07:45 97.9 F 91 16 157/67 H 94 L 12/15/17 07:25 97.5 F L 96 22 H 96 12/15/17 06:07 97.5 F L 96 22 H 161/60 H 96 Weight Weight 188 lb 9.6 oz I&O: 12/14/17 12/15/17 12/16/17 06:59 06:59 06:59 Intake Total 5277 1789.5 Balance 5277 1789.5 Result Diagrams: 12/15/17 03:49 12/15/17 03:49 Phys Exam - Physical Examination Constitutional: NAD HEENT: PERRLA, moist MMs, sclera anicteric, oral pharynx no lesions Neck: no nodes, no JVD, supple, full ROM Respiratory: no wheezing, no rhonchi, clear to auscultation bilateral bibasilar rales present Cardiovascular: RRR, no significant murmur, no rub Gastrointestinal: soft, non-tender, no distention, positive bowel sounds Musculoskeletal: pulses present, edema present Neurological: moves all 4 limbs Lymphatic: no nodes Skin: no rash, normal turgor, cap refill <2 seconds Dx/Plan (1) Aspiration into lower respiratory tract Code(s): T17.800A - UNSP FOREIGN BODY IN OTH PRT RESP TRACT CAUSING ASPHYX, INIT Status: Acute Qualifiers: Encounter type: initial encounter Qualified Code(s): T17.800A - Unspecified foreign body in other parts of respiratory tract causing asphyxiation, initial encounter Comment: aspirated, not present on admit (2) Acute respiratory failure with hypoxemia Code(s): J96.01 - ACUTE RESPIRATORY FAILURE WITH HYPOXIA Status: Acute (3) Atrial fibrillation with rapid ventricular response Code(s): I48.91 - UNSPECIFIED ATRIAL FIBRILLATION Status: Acute (4) Sepsis Code(s): A41.9 - SEPSIS, UNSPECIFIED ORGANISM Status: Acute Qualifiers: Sepsis type: sepsis due to unspecified organism Qualified Code(s): A41.9 - Sepsis, unspecified organism (5) JIMENA (acute kidney injury) Code(s): N17.9 - ACUTE KIDNEY FAILURE, UNSPECIFIED Status: Acute Comment: improving (6) Dementia Code(s): F03.90 - UNSPECIFIED DEMENTIA WITHOUT BEHAVIORAL DISTURBANCE Status: Chronic Qualifiers: Dementia type: unspecified type Dementia behavioral disturbance: with behavioral disturbance Qualified Code(s): F03.91 - Unspecified dementia with behavioral disturbance (7) Hypertension Code(s): I10 - ESSENTIAL (PRIMARY) HYPERTENSION Status: Chronic Qualifiers: Hypertension type: essential hypertension Qualified Code(s): I10 - Essential (primary) hypertension (8) Myeloproliferative disorder Code(s): D47.1 - CHRONIC MYELOPROLIFERATIVE DISEASE Status: Chronic Comment : 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 will discuss with family
[2017-12-15] MEDS: Terazosin HCl 1 MG CAP PO SCH (20:35)
[2017-12-16] MEDS: Ampicillin 1 GM in Sodium Chloride 0.9% 100 ML IVPB SCH ×5 (00:09→23:42)
[2017-12-16] MEDS: Enoxaparin Sodium 40 MG/0.4 ML SYRINGE SC SCH (10:05)
[2017-12-16] MEDS: Famotidine 20 MG TAB PO SCH ×2 (12:19→21:29)
[2017-12-16] MEDS: Hydroxyurea 500 MG CAP PO SCH (12:19)
[2017-12-16] MEDS: Amiodarone 200 MG TAB PO SCH ×2 (12:19→21:29)
--- NOTE | 2017-12-16 15:30 | PDOC.EVN ---
Event Note - Event Note Event Note: After discharging, was approached by hospice. unable to admit patient at [facility] until tomorrow. Discharge held Family updated
--- NOTE | 2017-12-16 16:44 | DIS ---
DATE OF ADMISSION: 12/10/2017 DATE OF DISCHARGE: 12/16/2017 PRIMARY CARE PHYSICIAN: Aquiles Almeida M.D. DISCHARGE DIAGNOSES: 1. Right lower lobe aspiration pneumonia, not present on admission. 2. Metabolic encephalopathy. 3. Acute hypoxemic respiratory failure. 4. Atrial fibrillation with rapid ventricular response. 5. Paroxysmal atrial fibrillation. 6. Sepsis. 7. Acute kidney injury. 8. Dementia with behavioral disturbance. 9. Hypertension, essential. 10. Myeloproliferative disorder. CONSULTATIONS: 1. Cardiology, Dr. Ramses Rios. 2. Infectious Disease, Dr. Brendon Snowden. PROCEDURE: Echocardiogram on 12/13/2017 that showed EF of 60% to 65%, LVH, moderately dilated LA, tr clarissa MR, tricuspid aortic valve, trace TR and mild PI. HISTORY AND PHYSICAL: Mr. Phillips is an 87-year-old gentleman with a history of hyperlipidemia, hyper tension, BPH, dementia and myelodysplastic disorder, who presents to the Emergency Department with se psis and acute respiratory failure with hypoxia. He was a resident of [facility], [facility] respiratory distress, fever and altered mental status different from his baseline and was satti ng 88% on room air. Respiratory rate was 24. He was transferred to the Emergency Department for clara luation and was found to have a white count of 33,000 and a temperature of 99.9 on arrival. He was b [place] responsive to minimal to sternal rub. Due to his sepsis syndrome, we were subsequently consulted for admission. HOSPITAL COURSE: The patient was seen and examined by Dr. Suarez. [facility] with acute respiratory failure and hypoxia. Cultures were obtained. He started on cefepime, Levaquin, and vancomycin. He was given stress dose steroids. Overnight 12/10/2017 to 12/11/2017, Dr. Millard took the case over. The patient was informed that he f elt good. He was given broad-spectrum antibiotics. After discussion with his family, he was DNR. H e was moved to medical floor. Overnight 12/11/2016 to 12/12/2017, at [employer] 12/12/2017, the patient developed new onset atri al fibrillation with RVR. The patient was transferred back to telemetry for monitoring secondary to sepsis and pneumonia. Cardiology was consulted. On 12/12/2017, the patient was seen by Dr. Rios in consultation, he recommended stopping the diltia zem drip as he was getting hypotensive and started on amiodarone. He was put on aspirin alone for st roke prophylaxis. Dr. Snowden was consulted also due to positive blood cultures for gram variable rods . The patient remained afebrile. T-max is 99.6. Blood pressure was stable and pulse was controlled. Per Dr. Mlilard on 12/13/2017, the patient was stable and was given antibiotics. Urinary culture was p ositive for Enterococcus and for Micrococcus and he was deescalated to IV ampicillin and started to t aper on Solu-Medrol. Echocardiogram was done with the above findings. On 12/14/2017, the patient was developing more respiratory problems. A stat chest x-ray and ABG was ordered. It was followed by Dr. Millard later that day. He was found to have an increased infiltrate in the right lower lobe with suspected aspiration. He was kept n.p.o. and continued on IV fluids. Bernice stapleton was subsequently transferred to the Intermediate Care Unit. I took over on 12/15/2017, the patient was largely unresponsive except for sternal rub again. The pa tient was not waking up due to his increased white count and respiratory failure. We spoke with his family and wished for comfort care. Palliative Care was consulted and hospice was consulted. The patient remained stable on 12/15/2017 to 12/16/2017. Case management discussed with [facility] and the patient was approved to go back there on hospice with [facility]. I discussed with his sister at the bedside and arrangements were made. The [facility] for [facility] care. DISCHARGE PHYSICAL EXAMINATION: The patient was seen and examined on the day of discharge. Discharg e plan and disposition was discussed with his sister and family at the bedside. DISCHARGE MEDICATIONS: Only his nebulized treatments were continued. Further medications per [facility]. DISCHARGE CONDITION: Poor. The patient is out of hospital DNR. Follow up with [facility], Dr. Almeida.
--- NOTE | 2017-12-16 16:52 | PDOC.EVN ---
Event Note - Event Note Event Note: met with brother and his at the bedside. brothe ris the MPOA. discussed patient end-of-life wishes. Ptis a DNR/DNI, no feeding tubes. Pt not expected to recover. pMPOA desire is for pt to return to [facility]. comfort care until discharge 25 minutes were spent with family discussing advanced care plan
--- NOTE | 2017-12-16 18:33 | EKG ---
Test Reason : Blood Pressure : / mmHG Vent. Rate : 160 BPM Atrial Rate : 163 BPM P-R Int : 000 ms QRS Dur : 082 ms QT Int : 292 ms P-R-T Axes : 000 -48 015 degrees QTc Int : 476 ms Atrial fibrillation with rapid ventricular response with premature ventricular or aberrantly conducte d complexes Left axis deviation Anterior infarct (cited on or before 10-DEC-2017) Abnormal ECG When compared with ECG of 10-DEC-2017 17:21, (Unconfirmed) Atrial fibrillation has replaced Sinus rhythm Vent. rate has increased BY 65 BPM Questionable change in initial forces of Lateral leads ST now depressed in Lateral leads Confirmed by TAIWO VICENTE ([id number]) on 12/16/2017 6:32:43 PM Referred By: Confirmed By:TAIWO VICENTE
[2017-12-16] MEDS: Terazosin HCl 1 MG CAP PO SCH (21:30)
--- NOTE | 2017-12-16 22:26 | PDOC.CTH ---
Cardiology Progress Note - Subjective He is still confused but improved. - Objective Vital Signs Temp Pulse Resp BP Pulse Ox 12/16/17 20:00 99.1 F 82 19 100 12/16/17 19:37 99.1 F 82 19 164/85 H 100 12/16/17 15:34 97.2 F L 70 20 163/71 H 97 12/16/17 11:15 97.7 F 74 19 152/78 H 98 Weight 186 lb 3.2 oz 12/15/17 12/16/17 12/17/17 06:59 06:59 06:59 Intake Total 1789.5 1709.5 731 Balance 1789.5 1709.5 731 - Physical Examination General/Neuro: NAD Neck: no JVD present Lungs: unlabored respirations Heart: RRR Abdomen: NT/ND Extremities: other: (no edema.) - Telemetry Telemetry Rhythm: NSR - Labs Result Diagrams: 12/15/17 03:49 12/15/17 03:49 Troponin/CKMB CK-MB (CK-2) 0.4 ng/mL (0-6.6) 12/10/17 17:43 Troponin I 0.019 ng/mL (< 0.028) 12/12/17 03:11 - Assessment/Plan 1. Afib RVR, now in sinus 2. Possible sepsis. 3. Possible aspiration pneumonia PLAN: No new recs from cardiac perspective.
[2017-12-17] MEDS: Ampicillin 1 GM in Sodium Chloride 0.9% 100 ML IVPB SCH (05:54)
[2017-12-17 07:41] VITALS: BP 167/79; TEMP 97.5
[2017-12-17] MEDS: Enoxaparin Sodium 40 MG/0.4 ML SYRINGE SC SCH (07:59)
[2017-12-17] MEDS: Amiodarone 200 MG TAB PO SCH (07:59)
[2017-12-17] MEDS: Hydroxyurea 500 MG CAP PO SCH (08:00)
[2017-12-17] MEDS: Famotidine 20 MG TAB PO SCH (08:00)
--- NOTE | 2017-12-17 13:44 | ADD-DIS ---
Please see discharge summary dictated 12/16/2017 for full discharge summary. Patient was not able to leave yesterday. So, discharge was postponed to this morning. DATE OF DISCHARGE: Updated, 12/17/2017 Patient was set up for discharge to [facility] with hospice; however, they were unable to get him ad mitted the same evening, discharge was held and the patient was kept here on comfort care overnight. Overnight, he had no problems and was ready for discharge to [facility] this morning.
== END 2017-12-17 09:28 | DRG 871 ==
LOC: ERS 17:06 → 2NO 21:41 → T4-A 12-11 12:47 → IMCU/EMU 12-12 03:29
PROVIDERS: ADMIT Emergency Medicine; ATTEND Emergency Medicine
DX: A41.9 Sepsis, unspecified organism (principal); J96.01 Acute respiratory failure with hypoxia; J69.0 Pneumonitis due to inhalation of food and vomit; G93.41 Metabolic encephalopathy; N39.0 Urinary tract infection, site not specified; N17.9 Acute kidney failure, unspecified; F03.91 Unspecified dementia, unspecified severity, with behavioral disturbance; C94.6 Myelodysplastic disease, not elsewhere classified; I10 Essential (primary) hypertension; E78.5 Hyperlipidemia, unspecified; N40.0 Benign prostatic hyperplasia without lower urinary tract symptoms; E11.9 Type 2 diabetes mellitus without complications; Z91.81 History of falling; Z79.899 Other long term (current) drug therapy; Z66 Do not resuscitate; I48.0 Paroxysmal atrial fibrillation
CPT/HCPCS: 36415; 36416; 51701; 71045; 80048; 80053; 80202; 81003; 81015; 82553; 82805; 82977; 83605; 83690; 83735; 83880; 84443; 84484; 85025; 87040; 87077; 87086; 87186; 90471; 90670; 93005; 93010; 93306; 94640; 96361; 96365; 96367; A4353; G0009; G8996-GN-CL; G8997-GN-CK; J0290; J0692; J0696; J1650; J1956; J2543; J2920; J3370; J3480; J7042; J7050; J7620; S0028